=== PATIENT | female | born 1945 | race Caucasian/White ===

== ENCOUNTER 2017-07-08 10:41 | Emergency (ER) | payer MEDICARE ==
[2017-07-08 10:54] VITALS: BP 131/61; PULSE 87; RESP 17; TEMP 97.8
[2017-07-08] MEDS ORDERED: LORazepam 1 MG TAB PO STA (11:12)
--- NOTE | 2017-07-08 11:15 | ED ---
General Adult HPI - General Chief complaint: Anxiety Stated complaint: SHAKY, WEAKNESS Time Seen by Provider: 07/08/17 10:58 Source: patient, family, RN notes reviewed Mode of arrival: wheelchair Limitations: no limitations - History of Present Illness Initial comments: 71-year-old female presents to the emergency department with a chief complaint of anxiety. Patient has been having a lot of stress in her life recently and on Thursday started to flareup. She has a history of anxiety she's been on different anxiety medications throughout her life. Patient recently started doctor yesterday due to the increase in stress and anxiety and was placed on a new medication. She states today she continued to feel shaky and anxious they called her doctor and they sent her here to be seen. She denies any suicidal or homicidal thoughts. She states it feels exactly like her typical anxiety she has no physical complaints. She talks that the daughter the daughter states it seems much like her anxiety. There is wondering if that maybe we can do to help decrease her anxiety so that she can relax today.Patient denies any recent fever, chills, shortness of breath, chest pain, back pain, abdominal pain , nausea vomiting, numbness or tingling, dysuria or hematuria, constipation or diarrhea, headaches or visual changes, or any other current symptoms. - Related Data Allergies Allergy/AdvReac Type Severity Reaction Status Date / Time No Known Allergies Allergy Verified 07/08/17 10:54 Review of Systems ROS Statement: Those systems with pertinent positive or pertinent negative responses have been documented in the HPI. ROS Other: All systems not noted in ROS Statement are negative. Past Medical History Past Medical History: GERD/Reflux, Hyperlipidemia, Hypertension Additional Past Medical History / Comment(s): glaucoma History of Any Multi-Drug Resistant Organisms: None Reported Past Surgical History: Hysterectomy Past Psychological History: Anxiety Smoking Status: Current every day smoker Past Alcohol Use History: None Reported Past Drug Use History: None Reported General Exam Limitations: no limitations ENT exam: Present: normal exam, mucous membranes moist Neck exam: Present: normal inspection. Absent: tenderness, meningismus, lymphadenopathy Respiratory exam: Present: normal lung sounds bilaterally. Absent: respiratory distress, wheezes, rales, rhonchi, stridor Cardiovascular Exam: Present: regular rate, normal rhythm, normal heart sounds. Absent: systolic murmur, diastolic murmur, rubs, gallop, clicks Neurological exam: Present: alert, oriented X3 Psychiatric exam: Present: anxious. Absent: homicidal ideation, suicidal ideation Skin exam: Present: warm, dry, intact, normal color. Absent: rash Course Vital Signs 07/08/17 10:50 Temperature 97.8 F Pulse Rate 87 Respiratory 17 Rate Blood Pressure 131/61 O2 Sat by Pulse 94 L Oximetry Medical Decision Making - Medical Decision Making 71-year-old female presents emergency Department chief complaint of anxiety. At this time patient was offered a psychiatric evaluation patient does not want have that done. We did discuss additional workup for anxiety but she states this is much like her normal anxiety. At this time we did give the patient Ativan and her symptoms have improved. We did discuss return parameters and follow-up with her doctor. She does contract to safety and all questions have been answered. She will be discharged. Disposition Clinical Impression: Acute anxiety Disposition: HOME SELF-CARE Condition: Stable Instructions: Generalized Anxiety Disorder (ED) Additional Instructions: Please use medication as discussed. Please follow up with family doctor if symptoms have not improved over the next two days. Please return to the emergency room if your symptoms increase or worsen or for any other concerns. Referrals: Julieta Vargas MD [Primary Care Provider] - 1-2 days Time of Disposition: 12:07
== END 2017-07-08 12:34 | disposition home or self-care (01) ==
LOC: EC 10:41
DX: F41.9 Anxiety disorder, unspecified (principal); F17.200 Nicotine dependence, unspecified, uncomplicated
CPT/HCPCS: 99283

== ENCOUNTER 2017-11-15 11:33 | Emergency (ER) | payer MEDICARE ==
[2017-11-15 12:01] VITALS: PULSE 85
[2017-11-15] MEDS ORDERED: LORazepam 2 MG/ML INJ IV STA (13:30)
[2017-11-15 13:34] LABS: Basophils % (A) 0 %; Eosinophils # (A) 0.3 k/uL (0-0.7); Eosinophils % (A) 3 %; HCT 41.3 % (34.0-46.0); HGB 13.7 gm/dL (11.4-16.0); Lymphocytes # (A) 1.9 k/uL (1.0-4.8); Lymphocytes % (A) 17 %; MCH 31.6 pg (25.0-35.0); MCHC 33.2 g/dL (31.0-37.0); MCV 95.1 fL (80.0-100.0); Mean Platelet Volume 8.3; Monocytes # (A) 0.8 k/uL (0-1.0); Monocytes % (A) 7 %; Neutrophils % (A) 72 %; Platelet Count 434 k/uL (150-450); RBC 4.35 m/uL (3.80-5.40); RDW 12.2 % (11.5-15.5); WBC 11.1 k/uL (3.8-10.6)
[2017-11-15 13:44] LABS: ALT 33 U/L (9-52); AST 29 U/L (14-36); Albumin 4.2 g/dL (3.5-5.0); Alkaline Phosphatase 93 U/L (38-126); Anion Gap 10 mmol/L; Blood Urea Nitrogen 10 mg/dL (7-17); Calcium 10.2 mg/dL (8.4-10.2); Carbon Dioxide 29 mmol/L (22-30); Chloride 95 mmol/L (98-107); Glucose 103 mg/dL (74-99); Magnesium 1.9 mg/dL (1.6-2.3); Potassium 4.3 mmol/L (3.5-5.1); Sodium 134 mmol/L (137-145); Total Bilirubin 0.6 mg/dL (0.2-1.3); Total Protein 7.6 g/dL (6.3-8.2)
--- NOTE | 2017-11-15 13:52 | ED ---
General Adult HPI - General Chief complaint: Extremity Injury, Upper Stated complaint: Shaky Time Seen by Provider: 11/15/17 13:22 Source: patient, RN notes reviewed Mode of arrival: ambulatory Limitations: no limitations - History of Present Illness Initial comments: 72-year-old female presents emergency Department chief complaint of shaking. Patient states that she started having very anxious yesterday started shaking. Patient states that she normally takes Xanax which she's been out. Patient takes 0.25 mg. Patient states that when she states that she's had her Xanax. Patient denies any chest pain, shortness breath, focal weakness, headache or dizziness. Patient has appointment tomorrow with PCP. Patient does admit that she is very worried about everything. Patient states she takes Xanax for anxiety and insomnia. - Related Data Home Medications Medication Instructions Recorded Confirmed FLUoxetine HCL [PROzac] 20 mg PO DAILY 07/08/17 11/15/17 Latanoprost Ophth [Xalatan 0.005%] 1 drop BOTH EYES HS 07/08/17 11/15/17 Metoclopramide HCl [Reglan] 10 mg PO TID 07/08/17 11/15/17 Valsartan/Hydrochlorothiazide 1 tab PO DAILY 07/08/17 11/15/17 [Valsartan-Hctz 160-12.5 mg Tab] ALPRAZolam [Xanax] 0.25 mg PO Q6H PRN 11/15/17 11/15/17 Aspirin EC [Ecotrin Low Dose] 81 mg PO DAILY 11/15/17 11/15/17 Atorvastatin [Lipitor] 20 mg PO HS 11/15/17 11/15/17 Brimonidine Tartrate [Alphagan P 1 drops BOTH EYES BID 11/15/17 11/15/17 0.1% Ophth Soln] Dorzolamide/Timolol/Pf [Cosopt Pf 1 applicator BOTH EYES DAILY 11/15/17 11/15/17 2%/5% Ophth Droperette] Gentamicin/Prednisol AC [Pred-G 1% 1 drop RIGHT EYE QID 11/15/17 11/15/17 Eye Drops] Ketorolac 0.5% Ophth Soln [Acular] 1 drops RIGHT EYE QID 03/25/18 03/25/18 Multivitamins, Thera [Multivitamin 1 tab PO DAILY 11/15/17 11/15/17 (formulary)] Omeprazole 40 mg PO DAILY 11/15/17 11/15/17 hydrOXYzine PAMOATE [Vistaril] 25 - 50 mg PO Q6H PRN 11/15/17 11/15/17 Previous Rx's Medication Instructions Recorded ALPRAZolam [Xanax] 0.25 mg PO BID PRN #10 tab 11/15/17 Allergies Allergy/AdvReac Type Severity Reaction Status Date / Time No Known Allergies Allergy Verified 11/15/17 13:19 Review of Systems ROS Statement: Those systems with pertinent positive or pertinent negative responses have been documented in the HPI. ROS Other: All systems not noted in ROS Statement are negative. Past Medical History Past Medical History: GERD/Reflux, Hyperlipidemia, Hypertension Additional Past Medical History / Comment(s): glaucoma History of Any Multi-Drug Resistant Organisms: None Reported Past Surgical History: Hysterectomy Additional Past Surgical History / Comment(s): eye sx 11/12 Past Psychological History: Anxiety Smoking Status: Current every day smoker Past Alcohol Use History: None Reported Past Drug Use History: None Reported General Exam Limitations: no limitations General appearance: alert, in no apparent distress Head exam: Present: atraumatic, normocephalic, normal inspection Eye exam: Present: normal appearance, PERRL, EOMI. Absent: scleral icterus, conjunctival injection, periorbital swelling ENT exam: Present: normal exam, normal oropharynx, mucous membranes moist, TM's normal bilaterally, normal external ear exam Neck exam: Present: normal inspection, full ROM. Absent: tenderness, meningismus, lymphadenopathy Respiratory exam: Present: normal lung sounds bilaterally. Absent: respiratory distress, wheezes, rales, rhonchi, stridor Cardiovascular Exam: Present: regular rate, normal rhythm, normal heart sounds. Absent: systolic murmur, diastolic murmur, rubs, gallop, clicks Extremities exam: Present: normal inspection, full ROM, normal capillary refill , other (Equal strength of all extremities). Absent: tenderness, pedal edema, joint swelling, calf tenderness Neurological exam: Present: alert, oriented X3, CN II-XII intact, reflexes normal, other (Pscyth-ca-yyem intact bilaterally without shooting.). Absent: motor sensory deficit Psychiatric exam: Present: anxious Skin exam: Present: warm, dry, intact, normal color. Absent: rash Course Vital Signs 11/15/17 11:58 Temperature 97.2 F L Pulse Rate 85 Respiratory 18 Rate Blood Pressure 139/85 O2 Sat by Pulse 92 L Oximetry - Reevaluation(s) Reevaluation #1: 11/15/17 13:51 Patient was reevaluated after Ativan. Patient has improvement. Medical Decision Making - Medical Decision Making 72-year-old female presented to get she is shaky. Lab work is unremarkable. Patient's symptoms are related to anxiety that she only takes Xanax for though she is out of them. Patient be given a short prescription and she has no appointment tomorrow. Return parameters were discussed. - Lab Data Result diagrams: 11/15/17 13:07 11/15/17 13:07 Lab Results 11/15/17 11/15/17 Range/Units 13:07 13:07 WBC 11.1 H (3.8-10.6) k/uL RBC 4.35 (3.80-5.40) m/uL Hgb 13.7 (11.4-16.0) gm/dL Hct 41.3 (34.0-46.0) % MCV 95.1 (80.0-100.0) fL MCH 31.6 (25.0-35.0) pg MCHC 33.2 (31.0-37.0) g/dL RDW 12.2 (11.5-15.5) % Plt Count 434 (150-450) k/uL Neutrophils % 72 % Lymphocytes % 17 % Monocytes % 7 % Eosinophils % 3 % Basophils % 0 % Neutrophils # 8.0 H (1.3-7.7) k/uL Lymphocytes # 1.9 (1.0-4.8) k/uL Monocytes # 0.8 (0-1.0) k/uL Eosinophils # 0.3 (0-0.7) k/uL Basophils # 0.0 (0-0.2) k/uL Sodium 134 L (137-145) mmol/L Potassium 4.3 (3.5-5.1) mmol/L Chloride 95 L (98-107) mmol/L Carbon Dioxide 29 (22-30) mmol/L Anion Gap 10 mmol/L BUN 10 (7-17) mg/dL Creatinine 0.63 (0.52-1.04) mg/dL Est GFR (CKD-EPI)AfAm >90 (>60 ml/min/1.73 sqM) Est GFR (CKD-EPI)NonAf >90 (>60 ml/min/1.73 sqM) Glucose 103 H (74-99) mg/dL Calcium 10.2 (8.4-10.2) mg/dL Magnesium 1.9 (1.6-2.3) mg/dL Total Bilirubin 0.6 (0.2-1.3) mg/dL AST 29 (14-36) U/L ALT 33 (9-52) U/L Alkaline Phosphatase 93 (38-126) U/L Total Protein 7.6 (6.3-8.2) g/dL Albumin 4.2 (3.5-5.0) g/dL Disposition Clinical Impression: Anxiety Disposition: HOME SELF-CARE Condition: Stable Instructions: Anxiety (ED) Additional Instructions: Please return to the Emergency Department if symptoms worsen or any other concerns. Prescriptions: ALPRAZolam [Xanax] 0.25 mg PO BID PRN #10 tab PRN Reason: Anxiety Referrals: Julieta Vargas MD [Primary Care Provider] - 1-2 days Time of Disposition: 14:12
[2017-11-15 14:20] VITALS: BP 142/82; RESP 20; TEMP 98.7
== END 2017-11-15 14:19 | disposition home or self-care (01) ==
LOC: EC 11:33
DX: F41.9 Anxiety disorder, unspecified (principal); R25.1 Tremor, unspecified; K21.9 Gastro-esophageal reflux disease without esophagitis; E78.5 Hyperlipidemia, unspecified; I10 Essential (primary) hypertension; H40.9 Unspecified glaucoma; F17.200 Nicotine dependence, unspecified, uncomplicated; Z79.899 Other long term (current) drug therapy; Z79.82 Long term (current) use of aspirin
CPT/HCPCS: 36415; 80053; 83735; 85025; 99283; 96374; J2060

== ENCOUNTER → 2018-03-22 | Outpatient (CLI) | payer MEDICARE ==
--- NOTE | 2018-03-22 14:36 | CT ---
EXAMINATION TYPE: CT brain wo con DATE OF EXAM: 03/22/2018 COMPARISON: None HISTORY: Tremors of the nervous system CT DLP: 1014.2 mGycm Automated exposure control for dose reduction was used. TECHNIQUE: CT scan of the head is performed without contrast. FINDINGS: There is no acute intracranial hemorrhage or midline shift identified. There is diffuse v entricular and sulcal prominence consistent with diffuse age-related cerebral atrophy. There are few scattered areas of low-attenuation in the periventricular white matter consistent with chronic small vessel ischemic change. The globes are intact and the visualized sinuses are clear. Partial pneumat ization of the petrous apices is incidentally seen. There is surgical absence of the right ocular le ns. IMPRESSION: No acute intracranial process. Mild diffuse age-related cerebral atrophy and mild burden chronic small vessel ischemic change. This could be further assessed with MRI if clinically indicate d. Additionally indents scan could be considered if there is concern for Parkinson's.
== END | disposition home or self-care (01) ==
LOC: RADCTMAIN 14:03
PROVIDERS: ATTEND Psychiatry & Neurology Neurology
DX: G31.1 Senile degeneration of brain, not elsewhere classified (principal); I67.82 Cerebral ischemia
CPT/HCPCS: 70450

== ENCOUNTER → 2020-03-02 | Outpatient (CLI) | payer MEDICARE ==
--- NOTE | 2020-03-02 09:22 | US ---
EXAMINATION TYPE: US abdomen complete DATE OF EXAM: 03/02/2020 COMPARISON: NONE CLINICAL HISTORY: R11.0 nausea, R74.8 abnormal level of enzymes. EXAM MEASUREMENTS: Liver Length: 15.6 cm Gallbladder Wall: 0.2 cm CBD: 0.5 cm Spleen: 7.9 cm Right Kidney: 11.3 x 3.8 x 5.1 cm Left Kidney: 9.5 x 5.8 x 5.5 cm Pancreas: not well visualized due to bowel gas Liver: wnl Gallbladder: No stones seen Evidence for sonographic Herbert's sign: No CBD: wnl Spleen: wnl Right Kidney: No hydronephrosis or masses seen Left Kidney: No hydronephrosis or masses seen Upper IVC: wnl Abd Aorta: calcified The liver is homogenous. The intrahepatic portion of the IVC and proximal abdominal aorta are within normal limits. There is no evidence of cholelithiasis. Common bile duct is unremarkable. The visu alized portions of the pancreas are homogenous. The spleen is unremarkable. Kidneys are symmetric a nd free of hydronephrosis. No renal lesions are seen. IMPRESSION: No distinct abnormality appreciated.
== END | disposition home or self-care (01) ==
LOC: RADUSWWP 08:50
PROVIDERS: ATTEND Family Medicine
DX: R11.0 Nausea (principal); R74.8 Abnormal levels of other serum enzymes
CPT/HCPCS: 76700

== ENCOUNTER 2020-07-21 18:54 | Inpatient (IN) | payer MEDICARE ==
[2020-07-21] MEDS ORDERED: MORPHINE SULFATE 4 MG/ML SYRINGE IVP STA (19:18)
[2020-07-21] MEDS ORDERED: ONDANSETRON 4 MG/2 ML VIAL IVP STA (19:18)
[2020-07-21 19:49] LABS: Basophils # (A) 0.1 k/uL (0-0.2); Basophils % (A) 0 %; Eosinophils # (A) 0.2 k/uL (0-0.7); Eosinophils % (A) 1 %; HCT 40.1 % (34.0-46.0); HGB 14.1 gm/dL (11.4-16.0); Lymphocytes # (A) 1.3 k/uL (1.0-4.8); Lymphocytes % (A) 7 %; MCH 33.6 pg (25.0-35.0); MCHC 35.3 g/dL (31.0-37.0); MCV 95.2 fL (80.0-100.0); Mean Platelet Volume 9.8; Monocytes # (A) 0.8 k/uL (0-1.0); Monocytes % (A) 4 %; Neutrophils # (A) 16.6 k/uL (1.3-7.7); Neutrophils % (A) 87 %; Platelet Count 298 k/uL (150-450); RBC 4.21 m/uL (3.80-5.40); RDW 12.6 % (11.5-15.5); WBC 19.1 k/uL (3.8-10.6)
--- NOTE | 2020-07-21 19:54 | ED ---
Fall HPI - General Chief Complaint: Fall Stated Complaint: Fall, R Hip Pain Time Seen by Provider: 07/21/20 19:07 Source: EMS Mode of arrival: EMS - History of Present Illness Initial Comments: 74-year-old female patient presents to the emergency department today for evaluation of right hip pain. Patient states about an hour and a half ago she expressed a fall landing on the right hip. Patient states she had immediate onset of pain. She is reporting pain to the right lateral hip into the right low back. She states that the pain does radiate down her leg. Denies numbness or tingling to the feet. Denies history of hip injury. She states that she lightly struck her head. Denies any current headache, blurred vision, double vision. Denies loss of consciousness. Denies taking any blood thinning medications. Patient denies any neck pain, back pain, chest pain, shortness of breath, dizziness, weakness, abdominal pain, nausea, vomiting, or difficulties with bowel movements or urination. - Related Data Home Medications Medication Instructions Recorded Confirmed FLUoxetine HCL [PROzac] 20 mg PO DAILY 07/08/17 11/15/17 Latanoprost Ophth [Xalatan 0.005%] 1 drop BOTH EYES HS 07/08/17 11/15/17 Metoclopramide HCl [Reglan] 10 mg PO TID 07/08/17 11/15/17 Valsartan/Hydrochlorothiazide 1 tab PO DAILY 07/08/17 11/15/17 [Valsartan-Hctz 160-12.5 mg Tab] ALPRAZolam [Xanax] 0.25 mg PO Q6H PRN 11/15/17 11/15/17 Aspirin EC [Ecotrin Low Dose] 81 mg PO DAILY 11/15/17 11/15/17 Atorvastatin [Lipitor] 20 mg PO HS 11/15/17 11/15/17 Brimonidine Tartrate [Alphagan P 1 drops BOTH EYES BID 11/15/17 11/15/17 0.1% Ophth Soln] Dorzolamide/Timolol/Pf [Cosopt Pf 1 applicator BOTH EYES DAILY 11/15/17 11/15/17 2%/5% Ophth Droperette] Gentamicin/Prednisol AC [Pred-G 1% 1 drop RIGHT EYE QID 11/15/17 11/15/17 Eye Drops] Ketorolac 0.5% Ophth Soln [Acular] 1 drops RIGHT EYE QID 11/15/17 11/15/17 Multivitamins, Thera [Multivitamin 1 tab PO DAILY 11/15/17 11/15/17 (formulary)] Omeprazole 40 mg PO DAILY 11/15/17 11/15/17 hydrOXYzine pamoate [Vistaril] 25 - 50 mg PO Q6H PRN 11/15/17 11/15/17 Previous Rx's Medication Instructions Recorded ALPRAZolam [Xanax] 0.25 mg PO BID PRN #10 tab 11/15/17 Allergies Allergy/AdvReac Type Severity Reaction Status Date / Time No Known Allergies Allergy Verified 07/21/20 19:03 Review of Systems ROS Statement: Those systems with pertinent positive or pertinent negative responses have been documented in the HPI. ROS Other: All systems not noted in ROS Statement are negative. Past Medical History Past Medical History: GERD/Reflux, Hyperlipidemia, Hypertension Additional Past Medical History / Comment(s): glaucoma, parkinsons. History of Any Multi-Drug Resistant Organisms: None Reported Past Surgical History: Hysterectomy Additional Past Surgical History / Comment(s): eye sx 11/12 Past Psychological History: Anxiety Smoking Status: Current every day smoker Past Alcohol Use History: None Reported Past Drug Use History: None Reported General Exam Limitations: no limitations General appearance: alert, in no apparent distress, other (This is a well- developed, well-nourished adult female patient in mild distress related to pain. Vital signs upon presentation are temperature 98.4F, pulse 80, respirations 18, blood pressure 188/82, pulse ox 93% on room air.) Head exam: Present: atraumatic, normocephalic, normal inspection Eye exam: Present: normal appearance, PERRL, EOMI. Absent: scleral icterus, conjunctival injection, nystagmus, periorbital swelling ENT exam: Present: normal exam, normal oropharynx, mucous membranes moist Neck exam: Present: normal inspection, full ROM, other (Nontender, no step-off, no deformity to firm midline palpation of the posterior cervical spine. Full range of motion without pain or limitation.). Absent: tenderness, meningismus, lymphadenopathy Respiratory exam: Present: normal lung sounds bilaterally. Absent: respiratory distress, wheezes, rales, rhonchi, stridor Cardiovascular Exam: Present: regular rate, normal rhythm, normal heart sounds. Absent: systolic murmur, diastolic murmur, rubs, gallop, clicks GI/Abdominal exam: Present: soft, normal bowel sounds. Absent: distended, tenderness, guarding, rebound, rigid Extremities exam: Present: full ROM, normal capillary refill, other (Bilateral hip tenderness. Shortening and rotation noted of the right leg. Skin to the right leg is pink, warm, dry. Pulses faint but present.). Absent: normal inspection, tenderness, pedal edema, joint swelling, calf tenderness Back exam: Present: normal inspection. Absent: vertebral tenderness Neurological exam: Present: alert, oriented X3, CN II-XII intact Psychiatric exam: Present: normal affect, normal mood Skin exam: Present: warm, dry, intact, normal color. Absent: rash Course Vital Signs 07/21/20 07/21/20 07/21/20 18:55 22:03 22:04 Temperature 98.4 F Pulse Rate 80 85 Respiratory 18 16 Rate Blood Pressure 188/82 O2 Sat by Pulse 93 L 95 Oximetry Medical Decision Making - Medical Decision Making 74-year-old female patient presents to the emergency department today for evaluation of right hip pain after experiencing a fall. Physical examination did reveal right lateral hip tenderness and shortening and rotation of the right leg. Neurovascular status is intact. Patient was hypoxic upon arrival satting around 92-93% on 4 L. She did drop into the low 80s on 4 L we did change her over to a Ventimask which is maintaining saturations are 95%. She was given a breathing treatment. Labs reviewed and did reveal elevated white blood cell count at 19.1, sodium is 126 which appears chronic for her. AST and ALT are elevated in the 180s. COVID-19 swab is pending. She will be admitted to the hospital. Dr. Yun is excepting. Dr. Apple's for medical management. He is aware of the patient and will see her first thing in the morning. - Lab Data Result diagrams: 07/21/20 19:41 07/21/20 20:20 Lab Results 07/21/20 07/21/20 07/21/20 Range/Units 19:41 20:15 20:20 WBC 19.1 H (3.8-10.6) k/uL RBC 4.21 (3.80-5.40) m/uL Hgb 14.1 (11.4-16.0) gm/dL Hct 40.1 (34.0-46.0) % MCV 95.2 (80.0-100.0) fL MCH 33.6 (25.0-35.0) pg MCHC 35.3 (31.0-37.0) g/dL RDW 12.6 (11.5-15.5) % Plt Count 298 (150-450) k/uL MPV 9.8 Neutrophils % 87 % Lymphocytes % 7 % Monocytes % 4 % Eosinophils % 1 % Basophils % 0 % Neutrophils # 16.6 H (1.3-7.7) k/uL Lymphocytes # 1.3 (1.0-4.8) k/uL Monocytes # 0.8 (0-1.0) k/uL Eosinophils # 0.2 (0-0.7) k/uL Basophils # 0.1 (0-0.2) k/uL Sodium 126 L (137-145) mmol/L Potassium 4.0 (3.5-5.1) mmol/L Chloride 98 (98-107) mmol/L Carbon Dioxide 25 (22-30) mmol/L Anion Gap 3 mmol/L BUN 11 (7-17) mg/dL Creatinine 0.67 (0.52-1.04) mg/dL Est GFR (CKD-EPI)AfAm >90 (>60 ml/min/1.73 sqM) Est GFR (CKD-EPI)NonAf 88 (>60 ml/min/1.73 sqM) Glucose 140 H (74-99) mg/dL Calcium 9.3 (8.4-10.2) mg/dL Total Bilirubin 0.7 (0.2-1.3) mg/dL AST 181 H (14-36) U/L ALT 184 H (4-34) U/L Alkaline Phosphatase 98 (38-126) U/L Total Protein 7.2 (6.3-8.2) g/dL Albumin 3.5 (3.5-5.0) g/dL Urine Color Urine Appearance (Clear) Urine pH (5.0-8.0) Ur Specific Peculiar (1.001-1.035) Urine Protein (Negative) Urine Glucose (UA) (Negative) Urine Ketones (Negative) Urine Blood (Negative) Urine Nitrite (Negative) Urine Bilirubin (Negative) Urine Urobilinogen (<2.0) mg/dL Ur Leukocyte Esterase (Negative) Blood Type A Positive Blood Type Confirm Blood Type Recheck No Previous Record Bld Type Recheck Status CABO Indicated Antibody Screen NEGATIVE Spec Expiration Date 07/24/2020 - 231407/21/20 07/21/20 Range/Units 20:20 21:13 WBC (3.8-10.6) k/uL RBC (3.80-5.40) m/uL Hgb (11.4-16.0) gm/dL Hct (34.0-46.0) % MCV (80.0-100.0) fL MCH (25.0-35.0) pg MCHC (31.0-37.0) g/dL RDW (11.5-15.5) % Plt Count (150-450) k/uL MPV Neutrophils % % Lymphocytes % % Monocytes % % Eosinophils % % Basophils % % Neutrophils # (1.3-7.7) k/uL Lymphocytes # (1.0-4.8) k/uL Monocytes # (0-1.0) k/uL Eosinophils # (0-0.7) k/uL Basophils # (0-0.2) k/uL Sodium (137-145) mmol/L Potassium (3.5-5.1) mmol/L Chloride (98-107) mmol/L Carbon Dioxide (22-30) mmol/L Anion Gap mmol/L BUN (7-17) mg/dL Creatinine (0.52-1.04) mg/dL Est GFR (CKD-EPI)AfAm (>60 ml/min/1.73 sqM) Est GFR (CKD-EPI)NonAf (>60 ml/min/1.73 sqM) Glucose (74-99) mg/dL Calcium (8.4-10.2) mg/dL Total Bilirubin (0.2-1.3) mg/dL AST (14-36) U/L ALT (4-34) U/L Alkaline Phosphatase (38-126) U/L Total Protein (6.3-8.2) g/dL Albumin (3.5-5.0) g/dL Urine Color Yellow Urine Appearance Clear (Clear) Urine pH 7.0 (5.0-8.0) Ur Specific Peculiar 1.012 (1.001-1.035) Urine Protein Negative (Negative) Urine Glucose (UA) Negative (Negative) Urine Ketones Negative (Negative) Urine Blood Negative (Negative) Urine Nitrite Negative (Negative) Urine Bilirubin Negative (Negative) Urine Urobilinogen <2.0 (<2.0) mg/dL Ur Leukocyte Esterase Negative (Negative) Blood Type Blood Type Confirm A Positive Blood Type Recheck Bld Type Recheck Status Antibody Screen Spec Expiration Date - EKG Data -: EKG Interpreted by Me EKG Comments: EKG obtained at 2123 shows normal sinus rhythm with a ventricular rate of 84, NM interval 154, QRS duration 78, QT 386, QTc 456. No evidence of ST elevation or depression. - Radiology Data Radiology results: report reviewed, image reviewed CT angiography of the chest is obtained. Report is reviewed in its entirety. Impression by Dr. Damon shows no evidence of pulmonary embolism. Like trail hernia. Mild pulmonary fibrotic changes. No suspicious pulmonary mass. 4 views of the right hip and pelvis are obtained. Report was reviewed in its entirety. Impression by Dr. Damon shows acute impacted subcapital fracture of the right femur. One view x-ray of the chest is obtained. Report was reviewed in its entirety. Impression by Dr. Damon shows hiatal hernia. No active cardiopulmonary disease. Disposition Clinical Impression: Closed right hip fracture, Hypoxia Disposition: ADMITTED IP TO THIS [facility] Condition: Serious Referrals: Julieta Vargas MD [Primary Care Provider] - 1-2 days Decision to Admit Reason: Admit from EC Decision Date: 07/21/20 Decision Time: 21:36
--- NOTE | 2020-07-21 20:32 | XR ---
EXAMINATION TYPE: XR chest 1V DATE OF EXAM: 07/21/2020 COMPARISON: NONE HISTORY: Preop clearance TECHNIQUE: 2 views supine FINDINGS: There is no heart failure nor confluent pneumonic infiltrate. Costophrenic angles are clear . There are no hilar masses. Bony thorax is intact. There is probably a hiatal hernia. IMPRESSION: Hiatal hernia. No active cardiopulmonary disease.
--- NOTE | 2020-07-21 20:33 | XR ---
EXAMINATION TYPE: XR Hip RT and AP Pelvis DATE OF EXAM: 07/21/2020 COMPARISON: NONE HISTORY: Hip pain TECHNIQUE: 4 views FINDINGS: There is impacted subcapital fracture right femur. There is approximate 3 cm of impaction. There is no dislocation. The pelvic ring is intact. Sacroiliac joints are intact. IMPRESSION: Acute impacted subcapital fracture right femur.
[2020-07-21 20:47] LABS: ALT 184 U/L (4-34); AST 181 U/L (14-36); African American GFR (CKD) >90 (>60 ml/min/1.73 sqM); Albumin 3.5 g/dL (3.5-5.0); Alkaline Phosphatase 98 U/L (38-126); Anion Gap 3 mmol/L; Blood Urea Nitrogen 11 mg/dL (7-17); Calcium 9.3 mg/dL (8.4-10.2); Carbon Dioxide 25 mmol/L (22-30); Chloride 98 mmol/L (98-107); Glucose 140 mg/dL (74-99); Non-African American GFR(CKD) 88 (>60 ml/min/1.73 sqM); Sodium 126 mmol/L (137-145); Total Bilirubin 0.7 mg/dL (0.2-1.3); Total Protein 7.2 g/dL (6.3-8.2)
[2020-07-21] MEDS ORDERED: IPRATROPIUM-ALBUTEROL 3 ML NEB INHALATION STA (20:58)
[2020-07-21 21:20] LABS: Appearance,Urine Clear (Clear); Bilirubin,Urine Negative (Negative); Blood,Urine Negative (Negative); Color,Urine Yellow; Glucose,Urine (UA) Negative (Negative); Ketones,Urine Negative (Negative); Leukocyte Esterase,Urine Negative (Negative); Nitrite,Urine Negative (Negative); Protein,Urine Negative (Negative); Specific Gravity,Urine 1.012 (1.001-1.035); Urobilinogen,Urine <2.0 mg/dL (<2.0)
[2020-07-21] MEDS ORDERED: NALOXONE 0.4 MG/ML 1 ML VIAL IV PRN (21:33)
[2020-07-21] MEDS ORDERED: ONDANSETRON 4 MG/2 ML VIAL IVP PRN (21:33)
[2020-07-21] MEDS ORDERED: HYDROmorphone 0.5 MG/0.5 ML SYRINGE IVP STA (21:35)
[2020-07-21] MEDS ORDERED: ACETAMINOPHEN TAB 325 MG TAB PO PRN (22:00)
--- NOTE | 2020-07-21 22:09 | CT ---
EXAMINATION TYPE: CT chest angio for PE DATE OF EXAM: 07/21/2020 COMPARISON: HISTORY: Hypoxia CT DLP: 297.6 mGycm Automated exposure control for dose reduction was used. CONTRAST: Performed with IV Contrast, patient injected with 80 mL of Isovue 370. There are 3-D post processed images. There is no mediastinal adenopathy. Thoracic aorta is atheromatous. There is no aneurysm or dissectio n. There is large hiatal hernia. Heart size is fairly normal. There is no pericardial effusion. There is normal contrast opacification of the pulmonary arteries. There are no filling defects. There are no hilar masses. The lungs are clear of consolidation. There is minimal fibrotic change at the lung apices. There is m inimal scarring and subsegmental atelectasis at the lung bases. Bony thorax is intact. IMPRESSION: No evidence of pulmonary embolism. Large hiatal hernia. Mild pulmonary fibrotic changes. No suspicious pulmonary mass.
[2020-07-21 22:30] LABS: Partial Thromboplastin Time 25.9 sec (22.0-30.0); Prothrombin Time 10.3 sec (9.0-12.0)
[2020-07-22] MEDS: HYDROmorphone 0.5 MG/0.5 ML SYRINGE IVP PRN ×6 (00:35→22:06)
[2020-07-22] MEDS: SODIUM CHLORIDE 0.9% 1,000 ML IV SCH ×2 (00:37→19:56)
[2020-07-22 09:17] LABS: Basophils % (A) 0 %; Eosinophils # (A) 0.1 k/uL (0-0.7); Eosinophils % (A) 0 %; Lymphocytes # (A) 1.1 k/uL (1.0-4.8); Lymphocytes % (A) 9 %; MCH 33.1 pg (25.0-35.0); MCHC 34.3 g/dL (31.0-37.0); MCV 96.5 fL (80.0-100.0); Mean Platelet Volume 7.5; Monocytes # (A) 0.8 k/uL (0-1.0); Monocytes % (A) 7 %; Neutrophils # (A) 10.5 k/uL (1.3-7.7); Neutrophils % (A) 83 %; Platelet Count 220 k/uL (150-450); RBC 3.94 m/uL (3.80-5.40); RDW 12.6 % (11.5-15.5); WBC 12.7 k/uL (3.8-10.6)
--- NOTE | 2020-07-22 09:22 | P.HPOR ---
<Alize Pulido - Last Filed: 07/22/20 09:17> History of Present Illness H&P Date: 07/22/20 Chief Complaint: Right hip pain This is a 74-year-old female who fell in her home last evening when she is trying to move an object with her foot. She lost her balance and fell on her right hip. She thinks she bumped her head slightly but has no complaint of headache or neck pain today. She denies loss of consciousness. Her main complaint is severe right hip pain. She was admitted through the emergency department last evening. We're planning or today for hemiarthroplasty of the right hip. The patient's O2 sat dropped into the low 80s at one point yesterday. She has been on O2 per nasal cannula. She has history of chronic COPD and is a pack-a-day smoker. She does not use oxygen at home. Past Medical History Past Medical History: GERD/Reflux, Hyperlipidemia, Hypertension Additional Past Medical History / Comment(s): glaucoma, parkinsons. History of Any Multi-Drug Resistant Organisms: None Reported Past Surgical History: Hysterectomy Additional Past Surgical History / Comment(s): eye sx 11/12 Past Psychological History: Anxiety Smoking Status: Current every day smoker Past Alcohol Use History: None Reported Past Drug Use History: None Reported Medications and Allergies Home Medications Medication Instructions Recorded Confirmed Type Metoclopramide HCl [Reglan] 10 mg PO TID 07/08/17 07/21/20 History Valsartan/Hydrochlorothiazide 1 tab PO DAILY 07/08/17 07/21/20 History [Valsartan-Hctz 160-12.5 mg Tab] Atorvastatin [Lipitor] 20 mg PO HS 11/15/17 07/21/20 History Omeprazole 20 mg PO DAILY 11/15/17 07/21/20 History hydrOXYzine pamoate [Vistaril] 25 - 50 mg PO Q6H PRN 11/15/17 07/21/20 History Cholecalciferol (Vitamin D3) 125 mcg PO DAILY 07/21/20 07/21/20 History [Vitamin D3] FLUoxetine HCL [PROzac] 40 mg PO DAILY 07/21/20 07/21/20 History Vitamin E 400 unit PO DAILY 07/21/20 07/21/20 History rOPINIRole HCL [Requip] 0.25 mg PO DAILY 07/21/20 07/21/20 History rOPINIRole HCL [Requip] 1 mg PO HS 07/21/20 07/21/20 History Allergies Allergy/AdvReac Type Severity Reaction Status Date / Time No Known Allergies Allergy Verified 07/21/20 22:51 Physical Examination This is a pleasant 74-year-old female in no acute distress. She is alert and oriented 3. She is on 4 L of O2 per nasal cannula. Exam of her head neck reveal no obvious deformity. She has full cervical spine motion without d ifficulty or pain. No pain with palpation about cervical spine or paraspinal musculature. Exam the upper extremities reveals no deformity. She has full shoulder, elbow, wrist and finger motion without difficulty or pain. Neurovascular status the upper extremities is intact. Exam the lower extremities reveals shortening and external rotation to the right leg. She has full foot and ankle motion bilaterally. Neurovascular status to the lower extremities is intact. Results X-rays of the right hip reveal a displaced femoral neck fracture. - Labs Labs: Abnormal Lab Results - Last 24 Hours (Table) 07/21/20 07/21/20 07/22/20 Range/Units 19:41 20:20 08:29 WBC 19.1 H 12.7 H (3.8-10.6) k/uL Neutrophils # 16.6 H 10.5 H (1.3-7.7) k/uL Sodium 126 L (137-145) mmol/L Glucose 140 H (74-99) mg/dL AST 181 H (14-36) U/L ALT 184 H (4-34) U/L H & H 07/21/20 07/22/20 Range/Units 19:41 08:29 Hgb 14.1 13.0 (11.4-16.0) gm/dL Hct 40.1 38.0 (34.0-46.0) % Coagulation 07/21/20 Range/Units 21:30 INR 1.0 (<1.2) Result Diagrams: 07/22/20 08:29 07/21/20 20:20 Assessment and Plan Plan: Assessment: Displaced femoral neck fracture right hip. Plan: The clinical and x-ray findings are discussed with the patient. She has been seen by Dr. Apple and cleared for surgery with high risk due to her chronic COPD. We are planning or today for hemiarthroplasty of the right hip. She may need inpatient rehab postoperatively. <Tru Apple - Last Filed: 07/22/20 09:34> Results - Labs Labs: Abnormal Lab Results - Last 24 Hours (Table) 07/21/20 07/21/20 07/22/20 Range/Units 19:41 20:20 08:29 WBC 19.1 H 12.7 H (3.8-10.6) k/uL Neutrophils # 16.6 H 10.5 H (1.3-7.7) k/uL Sodium 126 L (137-145) mmol/L Glucose 140 H (74-99) mg/dL AST 181 H (14-36) U/L ALT 184 H (4-34) U/L H & H 07/21/20 07/22/20 Range/Units 19:41 08:29 Hgb 14.1 13.0 (11.4-16.0) gm/dL Hct 40.1 38.0 (34.0-46.0) % Coagulation 07/21/20 Range/Units 21:30 INR 1.0 (<1.2) Result Diagrams: 07/22/20 08:29 07/21/20 20:20
--- NOTE | 2020-07-22 09:34 | P.HPIM ---
History of Present Illness H&P Date: 07/22/20 Shira Nash, is a 74-year-old female who presented to [facility] emergency room with a chief complaint of fall and right hip pain, patient stated that she tripped and fell and landed on her right hip about an hour and a half prior to presentation she was complaining of pain in the right hip radiating to the back and to the right lower extremity she also had mild trauma to her head, she denies any loss of consciousness no headache no change in her vision. Patient was evaluated in the emergency room, her vital exam on presentation revealed a temperature of 98.4 pulse 80 respiration 18 blood pressure 188/82 pulse ox 93% on room air however subsequently her pulse ox dropped she was put on a nonrebreather mask, her white blood count on presentation was 19.1 hemoglobin 14.1 platelet count 298 INR 1.0 sodium 126 potassium 4.0 chloride 98 glucose 140 AST was elevated at 180 one a LT elevated at 184 alkaline phosphatase normal at 98 urine analysis was normal without any evidence of infection rob virus PCR was negative, chest x-ray done in the emergency room revealed evidence of hiatal hernia without any active cardiopulmonary disease. Due to hypoxia patient underwent CT angiogram of the chest it was negative for pulmonary embolism and revealed mild pulmonary fibroti c changes no suspicious pulmonary mass. EKG was done in the emergency room and revealed normal sinus rhythm with evidence of possible old septal infarct no ST or T-wave changes. Patient was admitted to medical floor under orthopedic surgery, medical consultation was requested for surgical clearance. Patient was seen and examined on the medical floor on 07/22/2020, she is alert and oriented 3 in no apparent distress she is complaining of right hip pain otherwise she denies any complaints there is no fever or chills no headache or dizziness no chest pain no shortness of breath no cough no nausea or vomiting no abdominal pain no diarrhea no blood in the stools no burning with urination no frequency or urgency and no hematuria no change in her vision or her speech no numbness or weakness in any of her extremities. Patient interviewed in details she has a known history of hypertension, hyp erlipidemia, gastroesophageal reflux disease, history of anxiety, and history of tremor with possible Parkinson disease. She denies any history of coronary artery disease no history of chest pain or angina or myocardial infarction in the past, no history of congestive heart failure. She denies any history of lung disease no history of COPD or emphysema no history of asthma however patient is a lifelong smoker she smokes 1 pack per day she has been smoking since age 20. Past Medical History Past Medical History: GERD/Reflux, Hyperlipidemia, Hypertension Additional Past Medical History / Comment(s): glaucoma, parkinsons. History of Any Multi-Drug Resistant Organisms: None Reported Past Surgical History: Hysterectomy Additional Past Surgical History / Comment(s): eye sx 11/12 Past Psychological History: Anxiety Smoking Status: Current every day smoker Past Alcohol Use History: None Reported Past Drug Use History: None Reported Medications and Allergies Home Medications Medication Instructions Recorded Confirmed Type Metoclopramide HCl [Reglan] 10 mg PO TID 07/08/17 07/21/20 History Valsartan/Hydrochlorothiazide 1 tab PO DAILY 07/08/17 07/21/20 History [Valsartan-Hctz 160-12.5 mg Tab] Atorvastatin [Lipitor] 20 mg PO HS 11/15/17 07/21/20 History Omeprazole 20 mg PO DAILY 11/15/17 07/21/20 History hydrOXYzine pamoate [Vistaril] 25 - 50 mg PO Q6H PRN 11/15/17 07/21/20 History Cholecalciferol (Vitamin D3) 125 mcg PO DAILY 07/21/20 07/21/20 History [Vitamin D3] FLUoxetine HCL [PROzac] 40 mg PO DAILY 07/21/20 07/21/20 History Vitamin E 400 unit PO DAILY 07/21/20 07/21/20 History rOPINIRole HCL [Requip] 0.25 mg PO DAILY 07/21/20 07/21/20 History rOPINIRole HCL [Requip] 1 mg PO HS 07/21/20 07/21/20 History Allergies Allergy/AdvReac Type Severity Reaction Status Date / Time No Known Allergies Allergy Verified 07/21/20 22:51 Physical Exam Vitals: Vital Signs Temp Pulse Pulse Resp BP BP Pulse Ox 07/22/20 08:00 98.5 F 16 114/60 95 07/22/20 07:24 87 16 07/22/20 02:15 98.2 F 87 18 117/58 90 L 07/21/20 23:55 98.1 F 87 16 149/71 93 L 07/21/20 22:04 85 16 07/21/20 22:03 95 07/21/20 18:55 98.4 F 80 18 188/82 93 L Intake and Output 07/21/20 07/22/20 07/22/20 22:59 06:59 14:59 Intake Total 300 Output Total 650 Balance -350 Intake: Intake, IV Titration 300 Amount Sodium Chloride 0.9% 1, 300 000 ml @ 50 mls/hr IV . Q20H [facility] Rx#:[id number] Output: Urine 650 Other: Voiding Method Indwelling Catheter Indwelling Catheter Weight 64.41 kg 64.41 kg In general patient is alert and oriented 3 in no apparent distress HEENT head normocephalic and atraumatic Neck is supple no JVD no goiter no lymphadenopathy Chest exam reveals a few scattered rhonchi no wheezing Cardiac exam reveals regular heart sounds S1 and S2 no gallops no murmurs nor rubs Abdomen is soft nontender no organomegaly with normal bowel sounds Extremity exam reveals no edema no cyanosis or clubbing peripheral pulses are palpable in both dorsalis pedis Neurological examination reveals no gross focal deficit Results CBC & Chem 7: 07/21/20 19:41 07/21/20 20:20 Labs: Abnormal Lab Results - Last 24 Hours (Table) 07/21/20 07/21/20 Range/Units 19:41 20:20 WBC 19.1 H (3.8-10.6) k/uL Neutrophils # 16.6 H (1.3-7.7) k/uL Sodium 126 L (137-145) mmol/L Glucose 140 H (74-99) mg/dL AST 181 H (14-36) U/L ALT 184 H (4-34) U/L Thrombosis Risk Factor Assmnt - Choose All That Apply Each Factor Represents 1 point: Abnormal pulmonary function (COPD) Each Risk Factor Represents 2 Points: Age 61-74 years Each Risk Factor Represents 5 Points: Hip, pelvis, or leg fracture (< 1 month) Thrombosis Risk Factor Assessment Total Risk Factor Score: 8 Thrombosis Risk Factor Assessment Level: High Risk Assessment and Plan Plan: 1. Fall with right hip fracture patient is scheduled for surgery today. Patient is at higher risk due to her age, her prolonged history of smoking, mild hypoxia on presentation, however there is no medical contraindication for surgery, no abnormality seen on EKG, chest x-ray, and CT angiogram of the chest, no evidence of any infectious process on chest x-ray, urine analysis, no skin ulceration or infection. Pulmonary consultation is requested for evaluation and management of COPD with hypoxia 2. Elevated liver enzyme cause is unclear at this time will discontinue Lipitor, if liver enzymes are not improving will check liver ultrasound, and rule out viral hepatitis. 3. Underlying history of hypertension 4. Underlying history of Parkinson disease maintained on Requip 5. Underlying history of depression with anxiety disorder 6. Underlying history of hyperlipidemia at this point will hold Lipitor due to elevated liver enzymes 7. Underlying history of gastroesophageal reflux disease with evidence of hiatal hernia continue At this time patient will have surgery today, she is at higher risk however no contraindication for surgery Will follow closely post surgery Pulmonary consultation requested in regard to COPD hypoxia and prolonged history of smoking
[2020-07-22 12:57] LABS: African American GFR (CKD) 100.3 (60.0-200.0); Albumin 3.4 g/dL (3.80-4.90); Albumin/Globulin Ratio 1.21 (1.60-3.17); BUN/Creat Ratio 14.29 Ratio (12.00-20.00); Calcium 9.2 mg/dL (8.7-10.3); Globulin 2.8 g/dL (1.6-3.3); Non-African American GFR(CKD) 86.6 (60.0-200.0); Potassium 4.1 mmol/L (3.5-5.5); Total Bilirubin 0.7 mg/dL (0.2-1.2); Total Protein 6.2 g/dL (6.2-8.2)
[2020-07-22] MEDS ORDERED: fentaNYL (PF) 50 MCG/ML 2 ML AMP ONE (13:35)
[2020-07-22] MEDS ORDERED: MIDAZOLAM 2 MG/2 ML VIAL ONE (13:35)
[2020-07-22] MEDS ORDERED: KETAMINE 10 MG/ML 20 ML VIAL ONE (13:35)
[2020-07-22] MEDS ORDERED: IV FLUID CONTINUATION 1,000 ML IV ONE (13:39)
[2020-07-22] MEDS ORDERED: SODIUM CHLORIDE 0.9% 50 ML with ceFAZolin 2,000 MG IV ONE ×2 (13:39)
[2020-07-22] MEDS ORDERED: IPRATROPIUM-ALBUTEROL 3 ML NEB INHALATION PRN (14:19)
--- NOTE | 2020-07-22 14:19 | P.CNPUL ---
History of Present Illness Consult date: 07/22/20 Requesting physician: Caesar Yun Reason for consult: COPD Chief complaint: Right hip pain History of present illness: This is a very pleasant 74-year-old female patient who follows with Dr. Vargas as her primary care provider. She has a history of hypertension, hyperlipidemia, gastroesophageal reflux disease, anxiety. She also has a history of chronic and ongoing tobacco dependence and suspected chronic obstructive pulmonary disease. She denies any significant shortness of breath, cough or congestion. Typically she is able to do her day-to-day activities without any significant shortness of breath. She is not on any maintenance inhalers in the outpatient setting. She presented here to the emergency room after sustaining a fall at home and having significant right hip pain. She denied any loss of consciousness. Sustaining a trip and fall and not from dizziness or lightheadedness. CT angiogram ruled out pulmonary embolism. There is a large hiatal hernia. Mild pulmonary fibrotic changes. No suspicious pulmonary mass. Lung gordon are clear consolidation. She is seen today in consultation on the regular medical floor. She is currently resting in bed. Awake and alert in no acute distress. She is maintaining O2 saturations in the mid 90s on room air. She's afebrile. Hemodynamically stable. Plan is for repair of the right hip fracture possibly today. Review of Systems REVIEW OF SYSTEMS: CONSTITUTIONAL: Denies any recent significant weight loss or weight gain. EYES: Denies change in vision. EARS, NOSE, MOUTH, THROAT: Denies headaches, denies sore throat. CARDIOVASCULAR: Denies chest pain, palpitations or syncopal episodes. RESPIRATORY: Denies shortness of breath, cough, congestion or hemoptysis. GASTROINTESTINAL: Denies change in appetite, denies abdominal pain GENITOURINARY: Denies hematuria, denies infections. MUSKULOSKELETAL: Positive for right hip pain INTEGUMENTARY: Denies rash, denies eczema. NEUROLOGICAL: Denies recent memory loss, no recent seizure activity. PSYCHIATRIC: Denies anxiety, denies depression. HEMATOLOGIC/LYMPHATIC: Denies anemia, denies enlarged lymph nodes. Past Medical History Past Medical History: GERD/Reflux, Hyperlipidemia, Hypertension Additional Past Medical History / Comment(s): glaucoma, parkinsons. History of Any Multi-Drug Resistant Organisms: None Reported Past Surgical History: Hysterectomy Additional Past Surgical History / Comment(s): eye sx 11/12 Past Psychological History: Anxiety Smoking Status: Current every day smoker Past Alcohol Use History: None Reported Past Drug Use History: None Reported Medications and Allergies Home Medications Medication Instructions Recorded Confirmed Type Metoclopramide HCl [Reglan] 10 mg PO TID 07/08/17 07/21/20 History Valsartan/Hydrochlorothiazide 1 tab PO DAILY 07/08/17 07/21/20 History [Valsartan-Hctz 160-12.5 mg Tab] Atorvastatin [Lipitor] 20 mg PO HS 11/15/17 07/21/20 History Omeprazole 20 mg PO DAILY 11/15/17 07/21/20 History hydrOXYzine pamoate [Vistaril] 25 - 50 mg PO Q6H PRN 11/15/17 07/21/20 History Cholecalciferol (Vitamin D3) 125 mcg PO DAILY 07/21/20 07/21/20 History [Vitamin D3] FLUoxetine HCL [PROzac] 40 mg PO DAILY 07/21/20 07/21/20 History Vitamin E 400 unit PO DAILY 07/21/20 07/21/20 History rOPINIRole HCL [Requip] 0.25 mg PO DAILY 07/21/20 07/21/20 History rOPINIRole HCL [Requip] 1 mg PO HS 07/21/20 07/21/20 History Allergies Allergy/AdvReac Type Severity Reaction Status Date / Time No Known Allergies Allergy Verified 07/21/20 22:51 Physical Exam Vitals: Vital Signs Temp Pulse Pulse Resp BP BP Pulse Ox 07/22/20 08:00 98.5 F 16 114/60 95 07/22/20 07:24 87 16 07/22/20 02:15 98.2 F 87 18 117/58 90 L 07/21/20 23:55 98.1 F 87 16 149/71 93 L 07/21/20 22:04 85 16 07/21/20 22:03 95 07/21/20 18:55 98.4 F 80 18 188/82 93 L Intake and Output 07/21/20 07/22/20 07/22/20 22:59 06:59 14:59 Intake Total 300 Output Total 650 100 Balance -350 -100 Intake: Intake, IV Titration 300 Amount Sodium Chloride 0.9% 1, 300 000 ml @ 75 mls/hr IV . [id number] [facility] Rx#:[id number] Output: Urine 650 100 Other: Voiding Method Indwelling Catheter Indwelling Catheter Weight 64.41 kg 64.41 kg GENERAL EXAM: Alert, pleasant 74-year-old female patient, on room air comfortable in no apparent distress. HEAD: Normocephalic. EYES: Normal reaction of pupils, equal size. NOSE: Clear with pink turbinates. THROAT: No erythema or exudates. NECK: No masses, no JVD. CHEST: No chest wall deformity. LUNGS: Equal air entry with no crackles, wheeze, rhonchi or dullness. CVS: S1 and S2 normal with no audible murmur, regular rhythm. ABDOMEN: No hepatosplenomegaly, normal bowel sounds, no guarding or rigidity. SPINE: No scoliosis or deformity SKIN: No rashes CENTRAL NERVOUS SYSTEM: No focal deficits, tone is normal in all 4 extremities. EXTREMITIES: External rotation of the right leg noted. There is no peripheral edema. No clubbing, no cyanosis. Peripheral pulses are intact. Results - Laboratory Findings CBC and BMP: 07/22/20 08:29 07/22/20 08:29 PT/INR, D-dimer PT 10.3 sec (9.0-12.0) 07/21/20 21:30 INR 1.0 (<1.2) 07/21/20 21:30 Abnormal lab findings: Abnormal Labs 07/21/20 07/21/20 07/22/20 19:41 20:20 08:29 WBC 19.1 H Neutrophils # 16.6 H Sodium 126 L 131 L Glucose 140 H 114 H AST 181 H 123 H ALT 184 H 146 H Albumin 3.40 L Albumin/Globulin Ratio 1.21 L 07/22/20 08:29 WBC 12.7 H Neutrophils # 10.5 H Sodium Glucose AST ALT Albumin Albumin/Globulin Ratio - Diagnostic Findings Chest x-ray: image reviewed CT scan - chest: image reviewed Assessment and Plan Assessment: 1 Status post trip and fall with right hip fracture, denied loss of consciousness 2 Chronic tobacco dependence was some suspected underlying COPD 3 History of anxiety 4 Hyperlipidemia 5 Hypertension Plan: The patient was seen and evaluated by Dr. Stacy Chest x-ray, CAT scans and labs reviewed Cleared for surgery from the pulmonary standpoint Educated regarding the use of the incentive spirometer Educated regarding the importance of complete smoking cessation Bronchodilators as needed We will continue to follow and make further recommendations based on her clinical status I, the cosigning physician, performed a history & physical examination of the patient. Lungs sounds are clear. Maintaining good O2 saturations in the 90s on room air. I discussed the assessment and plan of care with my nurse practitioner, Gretchen Llamas. I attest to the above consultation as dictated by her. Time with Patient: Greater than 30
--- NOTE | 2020-07-22 14:58 | P.OP ---
Date of Procedure: 07/22/20 Procedure(s) Performed: PREOPERATIVE DIAGNOSIS: Right hip femoral neck fracture POSTOPERATIVE DIAGNOSIS: Right hip femoral neck fracture OPERATION: Right hip cemented unipolar hemiarthroplasty. ANESTHESIA: Spinal ESTIMATED BLOOD LOSS: 50 ml. ENGINEER AUTOMATED EQUIPMENT: Alize Pulido PA-C (assistance with: patient positioning, retraction, exposure, hemostasis, leg positioning, implantation, irrigation, closure, dressing) COMPLICATIONS: None apparent. COMPONENTS IMPLANTED: Mireille LDFx cemented femoral stem; unipolar femoral head; neck extension augments as needed. INDICATIONS: Mrs. Nash is a 74-year-old female with a history of falling and sustaining a femoral neck fracture. The fracture is displaced completely and the limb is shortened by more than 1 inch . I have recommended surgical treatment with a cemented unipolar hemiarthroplasty. I have discussed this procedure in detail and explained the potential risks and complications as being inclusive of, but not limited to: Bleeding, infection, scarring, discomfort, blood vessel and/or nerve damage, limb length inequality, gait disturbance, blood clot, pulmonary embolism, , and other risks. The consent form has been signed. PROCEDURE: After appropriate consent was obtained, the patient was taken to the operating room and placed in supine position. Spinal anesthetic was administered and after confirmation of adequate anesthesia, the patient was placed into the lateral decubitus position with the affected side up. Care was t aken to make sure that all pressure points were adequately padded and a [place] hip positioner was utilized for positioning. The hip was prepped and draped in the usual aseptic fashion using a combination of Chloraprep and alcohol. [place] drape was used for the case and the patient received intravenous antibiotics prior to the incision. The incision was created directly over the greater trochanter and carried slightly posteriorly for a posterior approach to the hip. The incision was then deepened down to subcutaneous tissue and fascia santiago. Fascia santiago was split in line with the incision and split proximally along the fibers of the gluteus aamir. The underlying fibers of the muscle were teased apart using finger dissection and bleeding vessels were picked up and coagulated. Retractor was then placed posteriorly consisting of a blunt [place]. The short external rotators and capsule were exposed and good visualization of the attachment of the external rotators to the femur was established. The short external rotators and capsule were released using electrocautery from their femoral attachments. A hockey stick shaped incision was created in the capsule. Joint fluid and hemarthrosis was evacuated and the patient's hip was internally rotated to expose the fracture site. The femoral neck cut was created approximately 1 cm superior to the lesser trochanter using a reciprocating saw. The femoral head and neck fragment was removed and visualization and palpation of the acetabular vault showed intact hyaline cartilage with no bone exposure or significant degeneration. Attention was then directed back to the proximal femur. Retractors were placed around the proximal femur and box osteotome was used followed by canal finder and trochanteric reamer. Cylindrical reaming was performed. Progressive broaching was then performed starting with a #10 broach and progressing final size, in a position of 10-15 degrees anteversion. [place] anteversion was within 5 degrees of stem position. The final size broach had excellent fit and fill of the patient's metaphysis and diaphysis. Calcar planing was performed. Trial reduction was then performed starting with appropriately sized femoral head and various neck extensions to evaluate stability, limb length equality, and soft tissue tension. Once these parameters were satisfactory, the corresponding final components were then called for. Trial components were removed. The femoral canal was sized for the centralizer and cement plug. Once the cement plug had been inserted distal to the planned length of the femoral component, the canal was pulse lavaged and brushed to remove any unstable bone. It was then dried with a lap sponge. Cement was mixed under vacuum conditions to decrease porosity and inserted into a cement gun. Distal centralizer was placed onto the femoral component with a bit of cement. The cement was allowed to reach a slightly doughy consistency and then the canal was filled retrograde with the cement gun. Thumb pressurization was performed three times. The femoral component was then inserted with the previously determined degree of anteversion. Excess cement was removed before it hardened completely. The femoral head was then impacted onto the Britt taper. Blood and debris were removed from the acetabular socket and the hip was then reduced and checked for stability, limb length and soft tissue tension. These parameters were found to be satisfactory; the wound was then thoroughly irrigated with normal saline. Final hemostasis was obtained using electrocautery. Closure of the capsule was performed meticulously using #3 Vicryl suture. Four [id number] sutures were placed in the posterior capsule along with repair of the external rotators. The fascia santiago was then repaired using combination of #3 Vicryl suture in interrupted fashion and [place] in running fashion. 2-0 Vicryl suture was used for the subcutaneous tissues and 3-0 [place] for the skin. Dermabond tape was then applied. The patient tolerated the procedure well. There were no complications and the wound bed was dry and there was no need for drain placement. Sterile dressing was then applied and the patient was carefully removed from the operating room table, placed on the stretcher and was taken to the recovery room in stable condition. Sponge and needle counts were correct.
[2020-07-22] MEDS ORDERED: HYDROmorphone 0.5 MG/0.5 ML SYRINGE IVP PRN ×2 (15:12)
[2020-07-22] MEDS ORDERED: TEMAZEPAM 15 MG CAP PO PRN (15:12)
[2020-07-22] MEDS ORDERED: NALOXONE 0.4 MG/ML 1 ML VIAL IV PRN (15:12)
--- NOTE | 2020-07-22 15:35 | XR ---
EXAMINATION TYPE: XR Hip Limited RT DATE OF EXAM: 07/22/2020 COMPARISON: Yesterday HISTORY: Hip surgery TECHNIQUE: FINDINGS: A single view shows a right hip prosthesis. Components appear in anatomic position. IMPRESSION: No complicating process seen.
[2020-07-22] MEDS: ASPIRIN 81 MG PO SCH (19:51)
[2020-07-22] MEDS: HYDROcodone/APAP 5-325MG 1 EACH TAB PO PRN (19:51)
[2020-07-22] MEDS: SENNOSIDES-DOCUSATE SODIUM 1 EACH TAB PO SCH (19:51)
[2020-07-23] MEDS: HYDROcodone/APAP 5-325MG 1 EACH TAB PO PRN ×4 (03:11→23:52)
[2020-07-23 07:54] LABS: Basophils % (A) 0 %; Eosinophils # (A) 0.1 k/uL (0-0.7); Eosinophils % (A) 1 %; HCT 33.4 % (34.0-46.0); Lymphocytes # (A) 1.5 k/uL (1.0-4.8); Lymphocytes % (A) 15 %; MCH 32.7 pg (25.0-35.0); MCHC 33.1 g/dL (31.0-37.0); MCV 98.7 fL (80.0-100.0); Monocytes # (A) 0.6 k/uL (0-1.0); Monocytes % (A) 6 %; Neutrophils # (A) 7.7 k/uL (1.3-7.7); Neutrophils % (A) 77 %; Platelet Count 205 k/uL (150-450); RBC 3.38 m/uL (3.80-5.40); RDW 13.4 % (11.5-15.5); WBC 10.1 k/uL (3.8-10.6)
[2020-07-23] MEDS: hydroCHLOROthiazide 12.5 MG CAP PO SCH (09:09)
[2020-07-23] MEDS: VALSARTAN 160 MG TAB PO SCH (09:10)
[2020-07-23] MEDS: ASPIRIN 81 MG PO SCH ×2 (09:27→21:33)
[2020-07-23] MEDS: SODIUM CHLORIDE 0.9% 1,000 ML IV SCH ×2 (09:27→21:34)
[2020-07-23] MEDS: FLUoxetine HCL 20 MG CAP PO SCH (09:27)
--- NOTE | 2020-07-23 09:51 | P.PN ---
Subjective Progress Note Date: 07/23/20 Principal diagnosis: Right hip fracture. Status post arthroplasty right hip. This is a 74-year-old female who fell in her home last evening when she is trying to move an object with her foot. She lost her balance and fell on her right hip. She thinks she bumped her head slightly but has no complaint of headache or neck pain today. She denies loss of consciousness. Her main complaint is severe right hip pain. She was admitted through the emergency department last evening. We're planning or today for hemiarthroplasty of the right hip. The patient's O2 sat dropped into the low 80s at one point yesterday. She has been on O2 per nasal cannula. She has history of chronic COPD and is a pack-a-day smoker. She does not use oxygen at home. 07/23/2020: This is a pleasant 74-year-old female who is postop day #1 status post hemiarthroplasty of the right hip. She has no new complaints or concerns today. Vital signs and labs are stable. Her pulse ox is 94 on 2 L of O2 per nasal cannula. Objective - Vital Signs Vital signs: Vital Signs Temp 98.4 F 07/23/20 07:56 Pulse 71 07/23/20 07:56 Resp 16 07/23/20 07:56 BP 89/50 07/23/20 07:56 Pulse Ox 97 07/23/20 07:56 Intake & Output 07/22/20 07/23/20 07/23/20 18:59 06:59 18:59 Intake Total 500 800 236 Output Total 200 600 Balance 300 200 236 Weight 64.41 kg Intake: IV 500 Intake, IV Titration 800 Amount Sodium Chloride 0.9% 1, 600 000 ml @ 75 mls/hr IV . [id number] ASHWINI Rx#:[id number] ceFAZolin 2 gm In Sodium 200 Chloride 0.9% 50 ml @ 100 mls/hr IVPB Q8H ASHWINI Rx#: [id number] Oral 236 Output: Urine 150 600 Estimated Blood Loss 50 Other: Voiding Method Indwelling Catheter Indwelling Catheter Indwelling Catheter - Exam This is a pleasant 74-year-old female in no acute distress. She is alert and oriented 3. Exam of the right hip reveals that her dressing is clean, dry and intact. She has full foot and ankle motion without difficulty or pain. Neurovascular status to the lower extremity is intact. - Labs CBC & Chem 7: 07/23/20 07:23 07/22/20 08:29 Labs: Abnormal Lab Results - Last 24 Hours (Table) 07/22/20 07/23/20 Range/Units 08:29 07:23 RBC 3.38 L (3.80-5.40) m/uL Hgb 11.0 L (11.4-16.0) gm/dL Hct 33.4 L (34.0-46.0) % Sodium 131 L (135-145) mmol/L Glucose 114 H (70-110) mg/dL AST 123 H (13-35) U/L ALT 146 H (8-44) U/L Albumin 3.40 L (3.80-4.90) g/dL Albumin/Globulin Ratio 1.21 L (1.60-3.17) g/dL Assessment and Plan (1) Status post-operative repair of closed fracture of right hip Current Visit: Yes Status: Acute Code(s): Z98.890 - OTHER SPECIFIED POSTPROCEDURAL STATES; Z87.81 - PERSONAL HISTORY OF (HEALED) TRAUMATIC FRACTURE SNOMED Code(s): 010530449 (2) Closed right hip fracture Current Visit: Yes Status: Acute Code(s): S72.001A - FRACTURE OF UNSP PART OF NECK OF RIGHT FEMUR, INIT SNOMED Code(s): 482787246 (3) Hypoxia Current Visit: Yes Status: Acute Code(s): R09.02 - HYPOXEMIA SNOMED Code(s): 384144451 Plan: The clinical findings are discussed with the patient. She'll begin physical therapy and I facial therapy today. She would like to go home as opposed to inpatient rehab. We will see how she does over the next couple of days with physical therapy. She is weightbearing as tolerated.
[2020-07-23 11:36] LABS: African American GFR (CKD) 105.5 (60.0-200.0); Albumin 2.7 g/dL (3.80-4.90); Albumin/Globulin Ratio 1.13 (1.60-3.17); Anion Gap 2.4 mmol/L (4.00-12.00); Calcium 8.7 mg/dL (8.7-10.3); Carbon Dioxide 27.6 mmol/L (21.6-31.8); Globulin 2.4 g/dL (1.6-3.3); Non-African American GFR(CKD) 91.1 (60.0-200.0); Potassium 3.9 mmol/L (3.5-5.5); Total Bilirubin 0.6 mg/dL (0.3-1.2); Total Protein 5.1 g/dL (6.2-8.2)
[2020-07-23] MEDS ORDERED: hydrOXYzine pamoate 25 MG CAP PO PRN (13:29)
[2020-07-23] MEDS: METOCLOPRAMIDE 10 MG TAB PO SCH ×2 (15:48→21:34)
--- NOTE | 2020-07-23 17:09 | P.PN ---
Subjective Progress Note Date: 07/23/20 Principal diagnosis: Acute hypoxic respiratory failure This is a very pleasant 74-year-old female patient who follows with Dr. Vargas as her primary care provider. She has a history of hypertension, hyperlipidemia, gastroesophageal reflux disease, anxiety. She also has a histo ry of chronic and ongoing tobacco dependence and suspected chronic obstructive pulmonary disease. She denies any significant shortness of breath, cough or congestion. Typically she is able to do her day-to-day activities without any significant shortness of breath. She is not on any maintenance inhalers in the outpatient setting. She presented here to the emergency room after sustaining a fall at home and having significant right hip pain. She denied any loss of consciousness. Sustaining a trip and fall and not from dizziness or lightheadedness. CT angiogram ruled out pulmonary embolism. There is a large hiatal hernia. Mild pulmonary fibrotic changes. No suspicious pulmonary mass. Lung gordon are clear consolidation. She is seen today in consultation on the regular medical floor. She is currently resting in bed. Awake and alert in no acute distress. She is maintaining O2 saturations in the mid 90s on room air. She's afebrile. Hemodynamically stable. Plan is for repair of the right hip fracture possibly today. On 07/23/2020 patient seen in follow-up on medical surgical floor. She is sitting up in the recliner, in no acute distress, she is off the oxygen, room air pulse ox is 97%, she is working on incentive spirometer, I assisted 1500 mL today, lung sounds reveal coarse bibasilar crackles, patient has a congested cough, she needs encouragement to deep breathe and cough, she's been afebrile, hemodynamically she is slightly on the hypotensive side earlier was 89/50, with improvement through the day of her blood pressure and current reading of 102/58, denies any acute distress, no cough, no hemoptysis, no chest pain, chest CT showed no evidence of pulmonary embolism. Did show large hiatal hernia, mild pulmonary fibrotic changes, no suspicious pulmonary mass. No acute events overnight. Objective - Vital Signs Vital signs: Vital Signs Temp 97.7 F 07/23/20 14:33 Pulse 86 07/23/20 14:33 Resp 16 07/23/20 14:33 BP 102/58 07/23/20 14:33 Pulse Ox 88 L 07/23/20 14:33 Intake & Output 07/22/20 07/23/20 07/23/20 18:59 06:59 18:59 Intake Total 500 800 472 Output Total 200 600 300 Balance 300 200 172 Weight 64.41 kg Intake: IV 500 Intake, IV Titration 800 Amount Sodium Chloride 0.9% 1, 600 000 ml @ 75 mls/hr IV . [id number] ASHWINI Rx#:[id number] ceFAZolin 2 gm In Sodium 200 Chloride 0.9% 50 ml @ 100 mls/hr IVPB Q8H ASHWINI Rx#: [id number] Oral 472 Output: Urine 150 600 300 Estimated Blood Loss 50 Other: Voiding Method Indwelling Catheter Indwelling Catheter Indwelling Catheter - Exam GENERAL EXAM: Alert, very pleasant, 74-year-old white female, on room air with pulse ox of 97% comfortable in no apparent distress. HEAD: Normocephalic/atraumatic. EYES: Normal reaction of pupils, equal size. Conjunctiva pink, sclera white. NOSE: Clear with pink turbinates. THROAT: No erythema or exudates. NECK: No masses, no JVD, no thyroid enlargement, no adenopathy. CHEST: No chest wall deformity. Symmetrical expansion. LUNGS: Equal air entry with coarse bibasilar crackles, but no wheezes CVS: Regular rate and rhythm, normal S1 and S2, no gallops, no murmurs, no rubs ABDOMEN: Soft, nontender. No hepatosplenomegaly, normal bowel sounds, no guarding or rigidity. EXTREMITIES: No clubbing, no edema, no cyanosis, 2+ pulses and upper and lower extremities. MUSCULOSKELETAL: Muscle strength and tone normal. Right hip incision is covered with surgical dressing, clean dry and intact, distal pulses intact SPINE: No scoliosis or deformity SKIN: No rashes CENTRAL NERVOUS SYSTEM: Alert and oriented -3. No focal deficits, tone is normal in all 4 extremities. PSYCHIATRIC: Alert and oriented -3. Appropriate affect. Intact judgment and insight. - Labs CBC & Chem 7: 07/23/20 07:23 07/23/20 07:23 Labs: Abnormal Lab Results - Last 24 Hours (Table) 07/23/20 07/23/20 Range/Units 07:23 07:23 RBC 3.38 L (3.80-5.40) m/uL Hgb 11.0 L (11.4-16.0) gm/dL Hct 33.4 L (34.0-46.0) % Sodium 130 L (135-145) mmol/L Anion Gap 2.40 L (4.00-12.00) mmol/L AST 87 H (13-35) U/L ALT 83 H (8-44) U/L Total Protein 5.1 L (6.2-8.2) g/dL Albumin 2.70 L (3.80-4.90) g/dL Albumin/Globulin Ratio 1.13 L (1.60-3.17) g/dL Assessment and Plan Plan: Assessment: #1. Acute hypoxic respiratory failure likely related to hypoventilation, chest x-ray showed no acute cardiopulmonary process, CTA chest showed no evidence of pulmonary embolism, did show mild pulmonary fibrotic changes, no suspicious pulmonary mass #2. Chronic tobacco dependence with some suspected underlying COPD #3. History of anxiety #4. Hypertension #5. Hyperlipidemia Plan: Encouraging deep breathing and coughing, incentive spirometry use, will and bronchodilators 3 times daily and as needed. Follow-up chest x-ray in the morning, we'll continue to follow I performed a history & physical examination of the patient and discussed their management with my nurse practitioner, Kelsi Culver. I reviewed the nurse practitioner's note and agree with the documented findings and plan of care. Lung sounds are positive for diminished with coarse rales The findings and the impression was discussed with the patient. I attest to the documentation by the nurse practitioner. Time with Patient: Less than 30
[2020-07-23] MEDS: IPRATROPIUM-ALBUTEROL 3 ML NEB INHALATION SCH (18:52)
--- NOTE | 2020-07-23 19:49 | P.PN ---
Subjective Progress Note Date: 07/23/20 Shira Nash, is a 74-year-old female who presented to [facility] emergency room with a chief complaint of fall and right hip pain, patient stated that she tripped and fell and landed on her right hip about an hour and a half prior to presentation she was complaining of pain in the right hip radiating to the back and to the right lower extremity she also had mild trauma to her head, she denies any loss of consciousness no headache no change in her vision. Patient was evaluated in the emergency room, her vital exam on presentation revealed a temperature of 98.4 pulse 80 respiration 18 blood pressure 188/82 pulse ox 93% on room air however subsequently her pulse ox dropped she was put on a nonrebreather mask, her white blood count on presentation was 19.1 hemoglobin 14.1 platelet count 298 INR 1.0 sodium 126 potassium 4.0 chloride 98 glucose 140 AST was elevated at 180 one a LT elevated at 184 alkaline phosphatase normal at 98 urine analysis was normal without any evidence of infection rob virus PCR was negative, chest x-ray done in the emergency room revealed evidence of hiatal hernia without any active cardiopulmonary disease. Due to hypoxia patient underwent CT angiogram of the chest it was negative for pulmonary embolism and revealed mild pulmonary fibrotic changes no suspicious pulmonary mass. EKG was done in the emergency room and revealed normal sinus rhythm with evidence of possible old septal infarct no ST or T-wave changes. Patient was admitted to medical floor under orthopedic surgery, medical consultation was requested for surgical clearance. Patient was seen and examined on the medical floor on 07/22/2020, she is alert and oriented 3 in no apparent distress she is complaining of right hip pain otherwise she denies any complaints there is no fever or chills no headache or dizziness no chest pain no shortness of breath no cough no nausea or vomiting no abdominal pain no diarrhea no blood in the stools no burning with urination no frequency or urgency and no hematuria no change in her vision or her speech no numbness or weakness in any of her extremities. Patient interviewed in details she has a known history of hypertension, hyperlip idemia, gastroesophageal reflux disease, history of anxiety, and history of tremor with possible Parkinson disease. She denies any history of coronary artery disease no history of chest pain or angina or myocardial infarction in the past, no history of congestive heart failure. She denies any history of lung disease no history of COPD or emphysema no history of asthma however patient is a lifelong smoker she smokes 1 pack per day she has been smoking since age 20. On 07/23/2020 patient was seen and examined on the medical floor she is alert and oriented in no distress he denies any complaints at this time there is no fever or chills no headache or dizziness no chest pain no shortness of breath no cough no nausea or vomiting no abdominal pain no diarrhea no blood in the stools no burning with urination no frequency or urgency and no hematuria, Objective - Vital Signs Vital signs: Vital Signs Temp 98.4 F 07/23/20 07:56 Pulse 71 07/23/20 07:56 Resp 16 07/23/20 07:56 BP 89/50 07/23/20 07:56 Pulse Ox 97 07/23/20 07:56 Intake & Output 07/22/20 07/23/20 07/23/20 18:59 06:59 18:59 Intake Total 500 800 472 Output Total 200 600 Balance 300 200 472 Weight 64.41 kg Intake: IV 500 Intake, IV Titration 800 Amount Sodium Chloride 0.9% 1, 600 000 ml @ 75 mls/hr IV . [id number] ASHWINI Rx#:[id number] ceFAZolin 2 gm In Sodium 200 Chloride 0.9% 50 ml @ 100 mls/hr IVPB Q8H ASHWINI Rx#: [id number] Oral 472 Output: Urine 150 600 Estimated Blood Loss 50 Other: Voiding Method Indwelling Catheter Indwelling Catheter Indwelling Catheter - Exam In general patient is alert and oriented 3 in no apparent distress HEENT head normocephalic and atraumatic Neck is supple no JVD no goiter no lymphadenopathy Chest exam reveals a few scattered rhonchi no wheezing Cardiac exam reveals regular heart sounds S1 and S2 no gallops no murmurs nor rubs Abdomen is soft nontender no organomegaly with normal bowel sounds Extremity exam reveals no edema no cyanosis or clubbing peripheral pulses are palpable in both dorsalis pedis Neurological examination reveals no gross focal deficit - Labs CBC & Chem 7: 07/23/20 07:23 07/23/20 07:23 Labs: Abnormal Lab Results - Last 24 Hours (Table) 07/23/20 07/23/20 Range/Units 07:23 07:23 RBC 3.38 L (3.80-5.40) m/uL Hgb 11.0 L (11.4-16.0) gm/dL Hct 33.4 L (34.0-46.0) % Sodium 130 L (135-145) mmol/L Anion Gap 2.40 L (4.00-12.00) mmol/L AST 87 H (13-35) U/L ALT 83 H (8-44) U/L Total Protein 5.1 L (6.2-8.2) g/dL Albumin 2.70 L (3.80-4.90) g/dL Albumin/Globulin Ratio 1.13 L (1.60-3.17) g/dL Assessment and Plan Plan: 1. Fall with right hip fracture patient is scheduled for surgery today. Patient is at higher risk due to her age, her prolonged history of smoking, mild hypoxia on presentation, however there is no medical contraindication for surgery, no abnormality seen on EKG, chest x-ray, and CT angiogram of the chest, no evidence of any infectious process on chest x-ray, urine analysis, no skin ulceration or infection. Pulmonary consultation is requested for evaluation and management of COPD with hypoxia 2. Elevated liver enzyme cause is unclear at this time will discontinue Lipitor, if liver enzymes are not improving will check liver ultrasound, and rule out viral hepatitis. 3. Underlying history of hypertension 4. Underlying history of Parkinson disease maintained on Requip 5. Underlying history of depression with anxiety disorder 6. Underlying history of hyperlipidemia at this point will hold Lipitor due to elevated liver enzymes 7. Underlying history of gastroesophageal reflux disease with evidence of hiatal hernia continue At this time patient will have surgery today, she is at higher risk however no contraindication for surgery Will follow closely post surgery Pulmonary consultation requested in regard to COPD hypoxia and prolonged history of smoking
[2020-07-23] MEDS ORDERED: ATORVASTATIN 20 MG TAB PO SCH (21:00)
[2020-07-23] MEDS: SENNOSIDES-DOCUSATE SODIUM 1 EACH TAB PO SCH (21:33)
[2020-07-24] MEDS: HYDROcodone/APAP 5-325MG 1 EACH TAB PO PRN ×3 (07:17→19:55)
[2020-07-24] MEDS: FLUoxetine HCL 20 MG CAP PO SCH (08:23)
[2020-07-24] MEDS: ASPIRIN 81 MG PO SCH ×2 (08:23→20:26)
[2020-07-24] MEDS: PANTOPRAZOLE 40 MG TABLET PO SCH (08:23)
[2020-07-24] MEDS: CHOLECALCIFEROL 1,000 UNIT TAB PO SCH (08:23)
[2020-07-24] MEDS: hydroCHLOROthiazide 12.5 MG CAP PO SCH (08:24)
[2020-07-24] MEDS: VITAMIN E (DL,TOCOPHERYL ACET) 400 UNIT CAP PO SCH (08:24)
[2020-07-24] MEDS: METOCLOPRAMIDE 10 MG TAB PO SCH ×3 (08:24→20:26)
[2020-07-24] MEDS: VALSARTAN 160 MG TAB PO SCH (08:25)
--- NOTE | 2020-07-24 08:34 | XR ---
EXAMINATION TYPE: XR chest 1V portable DATE OF EXAM: 07/24/2020 COMPARISON: Prior chest x-ray and chest CT 07/21/2020 HISTORY: Hypoxia TECHNIQUE: Single frontal view of the chest is obtained. FINDINGS: There are overlying artifacts and the patient is rotated. No evident pneumothorax or pleur al effusion. Cardiomediastinal silhouette, pulmonary vascularity and [place] are stable. Patchy bilatera l lung density is present. Partial intrathoracic stomach is present. IMPRESSION: Hiatal hernia and atelectasis versus scarring. Question airspace disease in the left upp er lobe, follow-up PA and lateral chest x-ray suggested. Nodular 5 mm density seen on CT in the right upper lobe is not seen on plain film, follow-up chest CT recommended.
--- NOTE | 2020-07-24 08:56 | P.PN ---
Subjective Progress Note Date: 07/24/20 Principal diagnosis: Right hip fracture. Status post arthroplasty right hip. This is a 74-year-old female who fell in her home last evening when she is trying to move an object with her foot. She lost her balance and fell on her right hip. She thinks she bumped her head slightly but has no complaint of headache or neck pain today. She denies loss of consciousness. Her main complaint is severe right hip pain. She was admitted through the emergency department last evening. We're planning or today for hemiarthroplasty of the right hip. The patient's O2 sat dropped into the low 80s at one point yesterday. She has been on O2 per nasal cannula. She has history of chronic COPD and is a pack-a-day smoker. She does not use oxygen at home. 07/23/2020: This is a pleasant 74-year-old female who is postop day #1 status post hemiarthroplasty of the right hip. She has no new complaints or concerns today. Vital signs and labs are stable. Her pulse ox is 94 on 2 L of O2 per nasal cannula. 07/24/2020: The patient is doing well today. She is postop day #2 status post hemiarthroplasty of the right hip. She has no new complaints or concerns today. She is doing fairly well with physical therapy. She would rather not go to rehab if she doesn't have to. She is anticipating discharge to home tomorrow. Objective - Vital Signs Vital signs: Vital Signs Temp 98.1 F 07/24/20 07:00 Pulse 87 07/24/20 07:00 Resp 18 07/24/20 01:37 BP 132/75 07/24/20 07:00 Pulse Ox 100 07/24/20 07:00 Intake & Output 07/23/20 07/24/20 07/24/20 18:59 06:59 18:59 Intake Total 590 Output Total 300 60 Balance 290 -60 Intake: Oral 590 Output: Urine 300 60 Other: Voiding Method Indwelling Catheter # Voids 1 - Exam This is a pleasant 74-year-old female in no acute distress. She is alert and oriented 3. Exam of the right hip reveals that her dressing is clean, dry and intact. She has full foot and ankle motion without difficulty or pain. Neurovascular status to the lower extremity is intact. - Labs CBC & Chem 7: 07/23/20 07:23 07/23/20 07:23 Labs: Abnormal Lab Results - Last 24 Hours (Table) 07/23/20 Range/Units 07:23 Sodium 130 L (135-145) mmol/L Anion Gap 2.40 L (4.00-12.00) mmol/L AST 87 H (13-35) U/L ALT 83 H (8-44) U/L Total Protein 5.1 L (6.2-8.2) g/dL Albumin 2.70 L (3.80-4.90) g/dL Albumin/Globulin Ratio 1.13 L (1.60-3.17) g/dL Assessment and Plan (1) Status post-operative repair of closed fracture of right hip Current Visit: Yes Status: Acute Code(s): Z98.890 - OTHER SPECIFIED POSTPROCEDURAL STATES; Z87.81 - PERSONAL HISTORY OF (HEALED) TRAUMATIC FRACTURE SNOMED Code(s): 088531974 (2) Closed right hip fracture Current Visit: Yes Status: Acute Code(s): S72.001A - FRACTURE OF UNSP PART OF NECK OF RIGHT FEMUR, INIT SNOMED Code(s): 959202262 (3) Hypoxia Current Visit: Yes Status: Acute Code(s): R09.02 - HYPOXEMIA SNOMED Code(s): 967316551 Plan: The clinical findings are discussed with the patient. Continue physical therapy today. She would like to go home as opposed to inpatient rehab. If she continues to do well she may be discharged to home tomorrow.
[2020-07-24] MEDS: IPRATROPIUM-ALBUTEROL 3 ML NEB INHALATION SCH ×3 (09:44→21:10)
--- NOTE | 2020-07-24 17:42 | P.PN ---
Subjective Progress Note Date: 07/24/20 Principal diagnosis: Acute hypoxic respiratory failure This is a very pleasant 74-year-old female patient who follows with Dr. Vargas as her primary care provider. She has a history of hypertension, hyperlipidemia, gastroesophageal reflux disease, anxiety. She also has a histo ry of chronic and ongoing tobacco dependence and suspected chronic obstructive pulmonary disease. She denies any significant shortness of breath, cough or congestion. Typically she is able to do her day-to-day activities without any significant shortness of breath. She is not on any maintenance inhalers in the outpatient setting. She presented here to the emergency room after sustaining a fall at home and having significant right hip pain. She denied any loss of consciousness. Sustaining a trip and fall and not from dizziness or lightheadedness. CT angiogram ruled out pulmonary embolism. There is a large hiatal hernia. Mild pulmonary fibrotic changes. No suspicious pulmonary mass. Lung gordon are clear consolidation. She is seen today in consultation on the regular medical floor. She is currently resting in bed. Awake and alert in no acute distress. She is maintaining O2 saturations in the mid 90s on room air. She's afebrile. Hemodynamically stable. Plan is for repair of the right hip fracture possibly today. On 07/23/2020 patient seen in follow-up on medical surgical floor. She is sitting up in the recliner, in no acute distress, she is off the oxygen, room air pulse ox is 97%, she is working on incentive spirometer, I assisted 1500 mL today, lung sounds reveal coarse bibasilar crackles, patient has a congested cough, she needs encouragement to deep breathe and cough, she's been afebrile, hemodynamically she is slightly on the hypotensive side earlier was 89/50, with improvement through the day of her blood pressure and current reading of 102/58, denies any acute distress, no cough, no hemoptysis, no chest pain, chest CT showed no evidence of pulmonary embolism. Did show large hiatal hernia, mild pulmonary fibrotic changes, no suspicious pulmonary mass. No acute events overnight. On 07/24/2020 patient is seen in follow-up on medical surgical. She is calm and comfortable, she is on to half liters of oxygen, she is sitting up in the chair, her pulse ox is 97%, she denies worsening dyspnea, lung sounds reveal some bibasilar crackles, he still receiving 0.9 normal sitting at a rate of 75 ML per hour, her chest x-ray today was reviewed showing hiatal hernia and atelectasis, questionable airspace disease in the left upper lobe. Clinically stable, she is working physical therapy. Possible discharge home for tomorrow is being planned Objective - Vital Signs Vital signs: Vital Signs Temp 97.5 F L 07/24/20 16:42 Pulse 90 07/24/20 16:42 Resp 14 07/24/20 16:42 BP 96/58 07/24/20 16:42 Pulse Ox 97 07/24/20 16:42 Intake & Output 07/23/20 07/24/20 07/24/20 18:59 06:59 18:59 Intake Total 590 Output Total 300 60 Balance 290 -60 Intake: Oral 590 Output: Urine 300 60 Other: Voiding Method Indwelling Catheter # Voids 1 1 - Exam GENERAL EXAM: Alert, very pleasant, 74-year-old white female, on room air with pulse ox of 97% comfortable in no apparent distress. HEAD: Normocephalic/atraumatic. EYES: Normal reaction of pupils, equal size. Conjunctiva pink, sclera white. NOSE: Clear with pink turbinates. THROAT: No erythema or exudates. NECK: No masses, no JVD, no thyroid enlargement, no adenopathy. CHEST: No chest wall deformity. Symmetrical expansion. LUNGS: Equal air entry with coarse bibasilar crackles, but no wheezes CVS: Regular rate and rhythm, normal S1 and S2, no gallops, no murmurs, no rubs ABDOMEN: Soft, nontender. No hepatosplenomegaly, normal bowel sounds, no guarding or rigidity. EXTREMITIES: No clubbing, no edema, no cyanosis, 2+ pulses and upper and lower extremities. MUSCULOSKELETAL: Muscle strength and tone normal. Right hip incision is covered with surgical dressing, clean dry and intact, distal pulses intact SPINE: No scoliosis or deformity SKIN: No rashes CENTRAL NERVOUS SYSTEM: Alert and oriented -3. No focal deficits, tone is normal in all 4 extremities. PSYCHIATRIC: Alert and oriented -3. Appropriate affect. Intact judgment and insight. - Labs CBC & Chem 7: 07/23/20 07:23 07/23/20 07:23 Assessment and Plan Plan: Assessment: #1. Acute hypoxic respiratory failure likely related to hypoventilation, chest x-ray showed no acute cardiopulmonary process, CTA chest showed no evidence of pulmonary embolism, did show mild pulmonary fibrotic changes, no suspicious pulmonary mass #2. Chronic tobacco dependence with some suspected underlying COPD #3. History of anxiety #4. Hypertension #5. Hyperlipidemia Plan: Continue encouraging deep breathing and coughing, today's chest x-ray has been reviewed, showing hiatal hernia and atelectasis. Vital signs have been stable, patient has been afebrile, diffuse crackles at bilateral bases on physical exam, we will discontinue IV fluids, wean FiO2, encouraging deep breathing and coughing, discharge home is pending possibly tomorrow I performed a history & physical examination of the patient and discussed their management with my nurse practitioner, Kelsi Culver. I reviewed the nurse practitioner's note and agree with the documented findings and plan of care. Lung sounds are positive for diminished with coarse rales The findings and the impression was discussed with the patient. I attest to the documentation by the nurse practitioner. Time with Patient: Less than 30
--- NOTE | 2020-07-24 18:03 | P.PN ---
Subjective Progress Note Date: 07/24/20 Shira Nash, is a 74-year-old female who presented to [facility] emergency room with a chief complaint of fall and right hip pain, patient stated that she tripped and fell and landed on her right hip about an hour and a half prior to presentation she was complaining of pain in the right hip radiating to the back and to the right lower extremity she also had mild trauma to her head, she denies any loss of consciousness no headache no change in her vision. Patient was evaluated in the emergency room, her vital exam on presentation revealed a temperature of 98.4 pulse 80 respiration 18 blood pressure 188/82 pulse ox 93% on room air however subsequently her pulse ox dropped she was put on a nonrebreather mask, her white blood count on presentation was 19.1 hemoglobin 14.1 platelet count 298 INR 1.0 sodium 126 potassium 4.0 chloride 98 glucose 140 AST was elevated at 180 one a LT elevated at 184 alkaline phosphatase normal at 98 urine analysis was normal without any evidence of infection rob virus PCR was negative, chest x-ray done in the emergency room revealed evidence of hiatal hernia without any active cardiopulmonary disease. Due to hypoxia patient underwent CT angiogram of the chest it was negative for pulmonary embolism and revealed mild pulmonary fibrotic changes no suspicious pulmonary mass. EKG was done in the emergency room and revealed normal sinus rhythm with evidence of possible old septal infarct no ST or T-wave changes. Patient was admitted to medical floor under orthopedic surgery, medical consultation was requested for surgical clearance. Patient was seen and examined on the medical floor on 07/22/2020, she is alert and oriented 3 in no apparent distress she is complaining of right hip pain otherwise she denies any complaints there is no fever or chills no headache or dizziness no chest pain no shortness of breath no cough no nausea or vomiting no abdominal pain no diarrhea no blood in the stools no burning with urination no frequency or urgency and no hematuria no change in her vision or her speech no numbness or weakness in any of her extremities. Patient interviewed in details she has a known history of hypertension, hyperlip idemia, gastroesophageal reflux disease, history of anxiety, and history of tremor with possible Parkinson disease. She denies any history of coronary artery disease no history of chest pain or angina or myocardial infarction in the past, no history of congestive heart failure. She denies any history of lung disease no history of COPD or emphysema no history of asthma however patient is a lifelong smoker she smokes 1 pack per day she has been smoking since age 20. On 07/23/2020 patient was seen and examined on the medical floor she is alert and oriented in no distress he denies any complaints at this time there is no fever or chills no headache or dizziness no chest pain no shortness of breath no cough no nausea or vomiting no abdominal pain no diarrhea no blood in the stools no burning with urination no frequency or urgency and no hematuria, On 07/24/2020 patient was seen and examined on the medical floor she is alert and oriented 3 in no apparent distress she is complaining of pain in her hip otherwise she denies any complaints there is no fever or chills no headache or dizziness no chest pain no shortness of breath no cough no nausea or vomiting no abdominal pain no diarrhea and no urinary symptoms Objective - Vital Signs Vital signs: Vital Signs Temp 98.1 F 07/24/20 07:00 Pulse 82 07/24/20 09:53 Resp 14 07/24/20 09:53 BP 132/75 07/24/20 07:00 Pulse Ox 100 07/24/20 07:00 Intake & Output 07/23/20 07/24/20 07/24/20 18:59 06:59 18:59 Intake Total 590 Output Total 300 60 Balance 290 -60 Intake: Oral 590 Output: Urine 300 60 Other: Voiding Method Indwelling Catheter # Voids 1 - Exam In general patient is alert and oriented 3 in no apparent distress HEENT head normocephalic and atraumatic Neck is supple no JVD no goiter no lymphadenopathy Chest exam reveals a few scattered rhonchi no wheezing Cardiac exam reveals regular heart sounds S1 and S2 no gallops no murmurs nor rubs Abdomen is soft nontender no organomegaly with normal bowel sounds Extremity exam reveals no edema no cyanosis or clubbing peripheral pulses are palpable in both dorsalis pedis Neurological examination reveals no gross focal deficit - Labs CBC & Chem 7: 07/23/20 07:23 07/23/20 07:23 Labs: Abnormal Lab Results - Last 24 Hours (Table) 07/23/20 Range/Units 07:23 Sodium 130 L (135-145) mmol/L Anion Gap 2.40 L (4.00-12.00) mmol/L AST 87 H (13-35) U/L ALT 83 H (8-44) U/L Total Protein 5.1 L (6.2-8.2) g/dL Albumin 2.70 L (3.80-4.90) g/dL Albumin/Globulin Ratio 1.13 L (1.60-3.17) g/dL Assessment and Plan Plan: 1. Fall with right hip fracture patient is scheduled for surgery today. Patient is at higher risk due to her age, her prolonged history of smoking, mild hypoxia on presentation, however there is no medical contraindication for surgery, no abnormality seen on EKG, chest x-ray, and CT angiogram of the chest, no evidence of any infectious process on chest x-ray, urine analysis, no skin ulceration or infection. Pulmonary consultation is requested for evaluation and management of COPD with hypoxia 2. Elevated liver enzyme cause is unclear at this time will discontinue Lipitor, if liver enzymes are not improving will check liver ultrasound, and rule out viral hepatitis. 3. Underlying history of hypertension 4. Underlying history of Parkinson disease maintained on Requip 5. Underlying history of depression with anxiety disorder 6. Underlying history of hyperlipidemia at this point will hold Lipitor due to elevated liver enzymes 7. Underlying history of gastroesophageal reflux disease with evidence of hiatal hernia continue At this time patient will have surgery today, she is at higher risk however no contraindication for surgery Will follow closely post surgery Pulmonary consultation requested in regard to COPD hypoxia and prolonged history of smoking
[2020-07-24] MEDS: SODIUM CHLORIDE 0.9% 1,000 ML IV SCH (18:18)
[2020-07-24] MEDS: SENNOSIDES-DOCUSATE SODIUM 1 EACH TAB PO SCH (20:26)
[2020-07-25 06:06] LABS: Basophils # (A) 0.1 k/uL (0-0.2); Basophils % (A) 0 %; Eosinophils # (A) 0.2 k/uL (0-0.7); Eosinophils % (A) 2 %; HCT 30.9 % (34.0-46.0); HGB 10.4 gm/dL (11.4-16.0); Lymphocytes # (A) 1.1 k/uL (1.0-4.8); Lymphocytes % (A) 11 %; MCHC 33.8 g/dL (31.0-37.0); MCV 97.5 fL (80.0-100.0); Mean Platelet Volume 7.5; Monocytes # (A) 0.5 k/uL (0-1.0); Monocytes % (A) 5 %; Neutrophils # (A) 8.6 k/uL (1.3-7.7); Neutrophils % (A) 80 %; Platelet Count 227 k/uL (150-450); RBC 3.17 m/uL (3.80-5.40); RDW 12.8 % (11.5-15.5); WBC 10.7 k/uL (3.8-10.6)
[2020-07-25] MEDS: IPRATROPIUM-ALBUTEROL 3 ML NEB INHALATION SCH ×3 (07:24→21:11)
[2020-07-25] MEDS: CHOLECALCIFEROL 1,000 UNIT TAB PO SCH (07:53)
[2020-07-25] MEDS: ASPIRIN 81 MG PO SCH ×2 (07:54→20:12)
[2020-07-25] MEDS: PANTOPRAZOLE 40 MG TABLET PO SCH (07:54)
[2020-07-25] MEDS: HYDROcodone/APAP 5-325MG 1 EACH TAB PO PRN ×2 (07:55→16:51)
[2020-07-25] MEDS: hydroCHLOROthiazide 12.5 MG CAP PO SCH (07:55)
[2020-07-25] MEDS: VITAMIN E (DL,TOCOPHERYL ACET) 400 UNIT CAP PO SCH (07:56)
[2020-07-25] MEDS: METOCLOPRAMIDE 10 MG TAB PO SCH ×3 (07:56→20:12)
[2020-07-25] MEDS: FLUoxetine HCL 20 MG CAP PO SCH (07:56)
[2020-07-25] MEDS: VALSARTAN 160 MG TAB PO SCH (07:56)
[2020-07-25 10:56] LABS: African American GFR (CKD) 112.1 (60.0-200.0); Albumin 2.6 g/dL (3.80-4.90); Albumin/Globulin Ratio 1.13 (1.60-3.17); Anion Gap 3.7 mmol/L (4.00-12.00); Calcium 9.2 mg/dL (8.7-10.3); Carbon Dioxide 30.3 mmol/L (21.6-31.8); Globulin 2.3 g/dL (1.6-3.3); Non-African American GFR(CKD) 96.7 (60.0-200.0); Potassium 3.8 mmol/L (3.5-5.5); Total Bilirubin 0.6 mg/dL (0.2-1.2); Total Protein 4.9 g/dL (6.2-8.2)
--- NOTE | 2020-07-25 12:28 | P.DS ---
Providers Date of admission: 07/21/20 22:41 Expected date of discharge: 07/25/20 Attending physician: Caesar Yun Consults: 07/21/20 21:34 Consult Physician Routine Consulting Provider: Tru Apple Consult Reason/Comments: Hypoxia; Medical management Do you want consulting provider notified?: Already Contacted 07/22/20 09:15 Consult Physician Routine Consulting Provider: Britt Stacy Consult Reason/Comments: COPD Do you want consulting provider notified?: Yes Primary care physician: Julieta Vargas - Discharge Diagnosis(es) (1) Status post-operative repair of closed fracture of right hip Current Visit: Yes Status: Acute (2) Closed right hip fracture Current Visit: Yes Status: Acute (3) Hypoxia Current Visit: Yes Status: Acute Hospital Course: This is a 74-year-old female who presented on 07/21/2020 right after falling and sustaining injury to the [] hip. On exam and x-ray in the emergency department she was found to have a hip fracture. The pt is admitted to our service for surgical intervention and care. The patient is taken to surgery for hemiarthroplasty of the right hip. The procedure is performed without complication or sequelae. The patient is doing well postoperatively. Vital signs are stable on postop day #3. There are no new complaints or concerns. The patient is discharged to inpatient rehab pending medical clearance today. Please refer to the med rec for accurate list of medications. Patient Condition at Discharge: Serious Plan - Discharge Summary Discharge Rx Participant: No New Discharge Prescriptions: New Aspirin [Adult Low Dose Aspirin EC] 81 mg PO BID #1 tablet. HYDROcodone/APAP 5-325MG [[place] 5-325] 1 - 2 tab PO Q6HR PRN #42 tab PRN Reason: Pain Sennosides-Docusate Sodium [Senokot-S] 1 tab PO BID #60 tablet No Action Metoclopramide HCl [Reglan] 10 mg PO TID Valsartan/Hydrochlorothiazide [Valsartan-Hctz 160-12.5 mg Tab] 1 tab PO DAILY Atorvastatin [Lipitor] 20 mg PO HS hydrOXYzine pamoate [Vistaril] 25 - 50 mg PO Q6H PRN PRN Reason: Anxiety Omeprazole 20 mg PO DAILY rOPINIRole HCL [Requip] 1 mg PO HS rOPINIRole HCL [Requip] 0.25 mg PO DAILY Vitamin E 400 unit PO DAILY Cholecalciferol (Vitamin D3) [Vitamin D3] 125 mcg PO DAILY FLUoxetine HCL [PROzac] 40 mg PO DAILY Discharge Medication List Metoclopramide HCl [Reglan] 10 mg PO TID 07/08/17 [History] Valsartan/Hydrochlorothiazide [Valsartan-Hctz 160-12.5 mg Tab] 1 tab PO DAILY 07/08/17 [History] Atorvastatin [Lipitor] 20 mg PO HS 11/15/17 [History] Omeprazole 20 mg PO DAILY 11/15/17 [History] hydrOXYzine pamoate [Vistaril] 25 - 50 mg PO Q6H PRN 11/15/17 [History] Cholecalciferol (Vitamin D3) [Vitamin D3] 125 mcg PO DAILY 07/21/20 [History] FLUoxetine HCL [PROzac] 40 mg PO DAILY 07/21/20 [History] Vitamin E 400 unit PO DAILY 07/21/20 [History] rOPINIRole HCL [Requip] 0.25 mg PO DAILY 07/21/20 [History] rOPINIRole HCL [Requip] 1 mg PO HS 07/21/20 [History] Aspirin [Adult Low Dose Aspirin EC] 81 mg PO BID #1 tablet. 07/24/20 [Rx] HYDROcodone/APAP 5-325MG [[place] 5-325] 1 - 2 tab PO Q6HR PRN #42 tab 07/24/20 [Rx] Sennosides-Docusate Sodium [Senokot-S] 1 tab PO BID #60 tablet 07/24/20 [Rx] Follow up Appointment(s)/Referral(s): Alize Pulido PAC [PHYSICIAN RAILROAD COMMISSIONER] - 08/15/20 2:00 pm Julieta Vargas MD [Primary Care Provider] - 1-2 days [facility] [NON-STAFF] - As Needed (walker) [facility], [NON-STAFF] - As Needed Activity/Diet/Wound Care/Special Instructions: May bear weight as tolerated with walker. Leave Optifoam dressing intact 7-10 days. Maintain posterior hip precautions. Discharge Disposition: HOME WITH HOME HEALTH SERVICES
--- NOTE | 2020-07-25 15:57 | P.PN ---
Subjective Progress Note Date: 07/25/20 Principal diagnosis: Status post fall, hip fracture This is a very pleasant 74-year-old female patient who follows with Dr. Vargas as her primary care provider. She has a history of hypertension, hyperlipidemia, gastroesophageal reflux disease, anxiety. She also has a history of chronic and ongoing tobacco dependence and suspected chronic obstructive pulmonary disease. She denies any significant shortness of breath, cough or congestion. Typically she is able to do her day-to-day activities without any significant shortness of breath. She is not on any maintenance inha lers in the outpatient setting. She presented here to the emergency room after sustaining a fall at home and having significant right hip pain. She denied any loss of consciousness. Sustaining a trip and fall and not from dizziness or lightheadedness. CT angiogram ruled out pulmonary embolism. There is a large hiatal hernia. Mild pulmonary fibrotic changes. No suspicious pulmonary mass. Lung gordon are clear consolidation. She is seen today in consultation on the regular medical floor. She is currently resting in bed. Awake and alert in no acute distress. She is maintaining O2 saturations in the mid 90s on room air. She's afebrile. Hemodynamically stable. Plan is for repair of the right hip fracture possibly today. On 07/23/2020 patient seen in follow-up on medical surgical floor. She is sitting up in the recliner, in no acute distress, she is off the oxygen, room air pulse ox is 97%, she is working on incentive spirometer, I assisted 1500 mL today, lung sounds reveal coarse bibasilar crackles, patient has a congested cough, she needs encouragement to deep breathe and cough, she's been afebrile, hemodynamically she is slightly on the hypotensive side earlier was 89/50, with improvement through the day of her blood pressure and current reading of 102/58, denies any acute distress, no cough, no hemoptysis, no chest pain, chest CT showed no evidence of pulmonary embolism. Did show large hiatal hernia, mild pulmonary fibrotic changes, no suspicious pulmonary mass. No acute events overnight. On 07/24/2020 patient is seen in follow-up on medical surgical. She is calm and comfortable, she is on to half liters of oxygen, she is sitting up in the chair, her pulse ox is 97%, she denies worsening dyspnea, lung sounds reveal some bibasilar crackles, he still receiving 0.9 normal sitting at a rate of 75 ML per hour, her chest x-ray today was reviewed showing hiatal hernia and atelectasis, questionable airspace disease in the left upper lobe. Clinically stable, she is working physical therapy. Possible discharge home for tomorrow is being planned The patient is seen today 07/25/2020 in follow-up on the regular medical floor. She is awake and alert in no acute distress. Sitting up in a chair at the bedside. No worsening shortness of breath, cough or congestion. She is currently maintaining O2 saturation in the 90s on 2 L/m per nasal cannula. A febrile. Hemodynamically stable. White count 10.7. Hemoglobin 10.4. Sodium 134. Potassium 3.8. Creatinine 0.5. Objective - Vital Signs Vital signs: Vital Signs Temp 98.4 F 07/25/20 07:07 Pulse 52 L 07/25/20 07:57 Resp 17 07/25/20 07:57 BP 133/69 07/25/20 07:07 Pulse Ox 92 L 07/25/20 07:07 Intake & Output 07/24/20 07/25/20 07/25/20 18:59 06:59 18:59 Other: Voiding Method Bedside Commode Bedside Commode # Voids 2 2 - Exam GENERAL EXAM: Alert, pleasant, 74-year-old female patient, on 2 L/m per nasal cannula with pulse ox of 92% comfortable in no apparent distress. HEAD: Normocephalic/atraumatic. EYES: Normal reaction of pupils, equal size. Conjunctiva pink, sclera white. NOSE: Clear with pink turbinates. THROAT: No erythema or exudates. NECK: No masses, no JVD, no thyroid enlargement, no adenopathy. CHEST: No chest wall deformity. Symmetrical expansion. LUNGS: Equal air entry with coarse bibasilar crackles, but no wheezes CVS: Regular rate and rhythm, normal S1 and S2, no gallops, no murmurs, no rubs ABDOMEN: Soft, nontender. No hepatosplenomegaly, normal bowel sounds, no guarding or rigidity. EXTREMITIES: No clubbing, no edema, no cyanosis, 2+ pulses and upper and lower extremities. MUSCULOSKELETAL: Muscle strength and tone normal. Right hip incision is covered with surgical dressing, clean dry and intact, distal pulses intact SPINE: No scoliosis or deformity SKIN: No rashes CENTRAL NERVOUS SYSTEM: No focal deficits, tone is normal in all 4 extremities. PSYCHIATRIC: Alert and oriented -3. Appropriate affect. Intact judgment and insight. - Labs CBC & Chem 7: 07/25/20 05:34 07/25/20 05:34 Labs: Abnormal Lab Results - Last 24 Hours (Table) 07/25/20 07/25/20 Range/Units 05:34 05:34 WBC 10.7 H (3.8-10.6) k/uL RBC 3.17 L (3.80-5.40) m/uL Hgb 10.4 L (11.4-16.0) gm/dL Hct 30.9 L (34.0-46.0) % Neutrophils # 8.6 H (1.3-7.7) k/uL Sodium 134 L (135-145) mmol/L Anion Gap 3.70 L (4.00-12.00) mmol/L Creatinine 0.5 L (0.6-1.5) mg/dL BUN/Creatinine Ratio 28.00 H (12.00-20.00) Ratio AST 49 H (13-35) U/L Total Protein 4.9 L (6.2-8.2) g/dL Albumin 2.60 L (3.80-4.90) g/dL Albumin/Globulin Ratio 1.13 L (1.60-3.17) g/dL Assessment and Plan Assessment: 1 Status post trip and fall with right hip fracture, denied loss of con sciousness 2 Chronic tobacco dependence was some suspected underlying COPD 3 History of anxiety 4 Hyperlipidemia 5 Hypertension Plan: The patient was seen and evaluated by Dr. Quezada Encouraged regarding the continued use of the incentive spirometer Educated regarding the importance of complete smoking cessation Bronchodilators as needed Home once cleared by surgery I, the cosigning physician, performed a history & physical examination of the patient. Lungs sounds with coarse crackles in the bases. Maintaining good O2 saturations in the 90s on 2 L/m per nasal cannula. I discussed the assessment and plan of care with my nurse practitioner, Gretchen Llamas. I attest to the above note as dictated by her.
--- NOTE | 2020-07-25 18:35 | P.PN ---
Subjective Progress Note Date: 07/25/20 Shira Nash, is a 74-year-old female who presented to [facility] emergency room with a chief complaint of fall and right hip pain, patient stated that she tripped and fell and landed on her right hip about an hour and a half prior to presentation she was complaining of pain in the right hip radiating to the back and to the right lower extremity she also had mild trauma to her head, she denies any loss of consciousness no headache no change in her vision. Patient was evaluated in the emergency room, her vital exam on presentation revealed a temperature of 98.4 pulse 80 respiration 18 blood pressure 188/82 pulse ox 93% on room air however subsequently her pulse ox dropped she was put on a nonrebreather mask, her white blood count on presentation was 19.1 hemoglobin 14.1 platelet count 298 INR 1.0 sodium 126 potassium 4.0 chloride 98 glucose 140 AST was elevated at 180 one a LT elevated at 184 alkaline phosphatase normal at 98 urine analysis was normal without any evidence of infection rob virus PCR was negative, chest x-ray done in the emergency room revealed evidence of hiatal hernia without any active cardiopulmonary disease. Due to hypoxia patient underwent CT angiogram of the chest it was negative for pulmonary embolism and revealed mild pulmonary fibrotic changes no suspicious pulmonary mass. EKG was done in the emergency room and revealed normal sinus rhythm with evidence of possible old septal infarct no ST or T-wave changes. Patient was admitted to medical floor under orthopedic surgery, medical consultation was requested for surgical clearance. Patient was seen and examined on the medical floor on 07/22/2020, she is alert and oriented 3 in no apparent distress she is complaining of right hip pain otherwise she denies any complaints there is no fever or chills no headache or dizziness no chest pain no shortness of breath no cough no nausea or vomiting no abdominal pain no diarrhea no blood in the stools no burning with urination no frequency or urgency and no hematuria no change in her vision or her speech no numbness or weakness in any of her extremities. Patient interviewed in details she has a known history of hypertension, hyperlip idemia, gastroesophageal reflux disease, history of anxiety, and history of tremor with possible Parkinson disease. She denies any history of coronary artery disease no history of chest pain or angina or myocardial infarction in the past, no history of congestive heart failure. She denies any history of lung disease no history of COPD or emphysema no history of asthma however patient is a lifelong smoker she smokes 1 pack per day she has been smoking since age 20. On 07/23/2020 patient was seen and examined on the medical floor she is alert and oriented in no distress he denies any complaints at this time there is no fever or chills no headache or dizziness no chest pain no shortness of breath no cough no nausea or vomiting no abdominal pain no diarrhea no blood in the stools no burning with urination no frequency or urgency and no hematuria, On 07/24/2020 patient was seen and examined on the medical floor she is alert and oriented 3 in no apparent distress she is complaining of pain in her hip otherwise she denies any complaints there is no fever or chills no headache or dizziness no chest pain no shortness of breath no cough no nausea or vomiting no abdominal pain no diarrhea and no urinary symptoms On 07/25/2020 patient was seen and examined on the medical floor she is alert and oriented 3 in no distress there is no fever or chills no headache or dizziness no chest pain no shortness of breath no cough no nausea or vomiting no abdominal pain no diarrhea and no urinary symptoms patient was cleared by orthopedic surgery for discharge however maintained on oxygen throughout this admission once oxygen was held for pulse ox dropped down to the 18th discharge order were held and chest x-ray was ordered if chest x-ray is normal possible discharge to home tomorrow will arrange for home oxygen. Objective - Vital Signs Vital signs: Vital Signs Temp 98.0 F 07/25/20 16:47 Pulse 98 07/25/20 16:47 Resp 18 07/25/20 16:47 BP 149/80 07/25/20 16:47 Pulse Ox 92 L 07/25/20 16:47 Intake & Output 07/24/20 07/25/20 07/25/20 18:59 06:59 18:59 Other: Voiding Method Bedside Commode Bedside Commode # Voids 2 2 - Exam In general patient is alert and oriented 3 in no apparent distress HEENT head normocephalic and atraumatic Neck is supple no JVD no goiter no lymphadenopathy Chest exam reveals a few scattered rhonchi no wheezing Cardiac exam reveals regular heart sounds S1 and S2 no gallops no murmurs nor rubs Abdomen is soft nontender no organomegaly with normal bowel sounds Extremity exam reveals no edema no cyanosis or clubbing peripheral pulses are palpable in both dorsalis pedis Neurological examination reveals no gross focal deficit - Labs CBC & Chem 7: 07/25/20 05:34 07/25/20 05:34 Labs: Abnormal Lab Results - Last 24 Hours (Table) 07/25/20 07/25/20 Range/Units 05:34 05:34 WBC 10.7 H (3.8-10.6) k/uL RBC 3.17 L (3.80-5.40) m/uL Hgb 10.4 L (11.4-16.0) gm/dL Hct 30.9 L (34.0-46.0) % Neutrophils # 8.6 H (1.3-7.7) k/uL Sodium 134 L (135-145) mmol/L Anion Gap 3.70 L (4.00-12.00) mmol/L Creatinine 0.5 L (0.6-1.5) mg/dL BUN/Creatinine Ratio 28.00 H (12.00-20.00) Ratio AST 49 H (13-35) U/L Total Protein 4.9 L (6.2-8.2) g/dL Albumin 2.60 L (3.80-4.90) g/dL Albumin/Globulin Ratio 1.13 L (1.60-3.17) g/dL Assessment and Plan Plan: 1. Fall with right hip fracture patient is scheduled for surgery today. Patient is at higher risk due to her age, her prolonged history of smoking, mild hypoxia on presentation, however there is no medical contraindication for surgery, no abnormality seen on EKG, chest x-ray, and CT angiogram of the chest, no evidence of any infectious process on chest x-ray, urine analysis, no skin ulceration or infection. Pulmonary consultation is requested for evaluation and management of COPD with hypoxia 2. Elevated liver enzyme cause is unclear at this time will discontinue Lipitor, if liver enzymes are not improving will check liver ultrasound, and rule out viral hepatitis. 3. Underlying history of hypertension 4. Underlying history of Parkinson disease maintained on Requip 5. Underlying history of depression with anxiety disorder 6. Underlying history of hyperlipidemia at this point will hold Lipitor due to elevated liver enzymes 7. Underlying history of gastroesophageal reflux disease with evidence of hiatal hernia continue At this time patient will have surgery today, she is at higher risk however no contraindication for surgery Will follow closely post surgery Pulmonary consultation requested in regard to COPD hypoxia and prolonged history of smoking
--- NOTE | 2020-07-25 19:23 | XR ---
EXAMINATION TYPE: XR chest 1V portable DATE OF EXAM: 07/25/2020 COMPARISON: Yesterday HISTORY: Short of breath. TECHNIQUE: FINDINGS: There is coarse interstitial infiltrate throughout both lungs. There is slight blunting rig ht costophrenic angle. Heart size is normal. There is hiatal hernia. IMPRESSION: Interstitial pneumonia unchanged or slightly worse than yesterday. Small right pleural ef fusion or pleural reaction unchanged.
[2020-07-25] MEDS: SENNOSIDES-DOCUSATE SODIUM 1 EACH TAB PO SCH (20:12)
[2020-07-26] MEDS: HYDROcodone/APAP 5-325MG 1 EACH TAB PO PRN ×2 (04:12→17:31)
[2020-07-26] MEDS: CHOLECALCIFEROL 1,000 UNIT TAB PO SCH (07:45)
[2020-07-26] MEDS: FLUoxetine HCL 20 MG CAP PO SCH (07:45)
[2020-07-26] MEDS: hydroCHLOROthiazide 12.5 MG CAP PO SCH (07:45)
[2020-07-26] MEDS: ASPIRIN 81 MG PO SCH (07:45)
[2020-07-26] MEDS: PANTOPRAZOLE 40 MG TABLET PO SCH (07:45)
[2020-07-26] MEDS: VITAMIN E (DL,TOCOPHERYL ACET) 400 UNIT CAP PO SCH (07:46)
[2020-07-26] MEDS: VALSARTAN 160 MG TAB PO SCH (07:46)
[2020-07-26] MEDS: METOCLOPRAMIDE 10 MG TAB PO SCH (07:46)
[2020-07-26] MEDS: IPRATROPIUM-ALBUTEROL 3 ML NEB INHALATION SCH ×2 (07:52→12:19)
[2020-07-26 07:55] VITALS: RESP 17
[2020-07-26 14:52] VITALS: BP 111/65; PULSE 94; TEMP 98.2
--- NOTE | 2020-07-26 16:26 | PN ---
PROGRESS NOTE This is a 74-year-old female who was admitted back on July 21 to the hospital. She apparently fell and when she did, she fractured her right hip. There was no loss of consciousness. The patient is doing much better. She has a history of chronic tobacco dependence and underlying COPD, anxiety, hyperlipidemia, and hypertension. The patient does not have any complaints. She is not short of breath. No chest pain or chest discomfort. No nausea, vomiting or diarrhea. PHYSICAL EXAMINATION: Current vital signs include a temperature 98.2, heart rate 94, respiratory rate 17, blood pressure 111/65 mean 82. saturation 96%. Appears in no acute distress. HEENT: Examination is grossly unremarkable. Nasal O2 noted at 2 L. NECK: Supple full range of motion. No adenopathy. Neck veins are flat. CARDIOVASCULAR: Examination reveals regular rhythm rate. S1, S2 normal. No S3, S4, or murmur. LUNGS: Reveal clear breath sounds to be equal bilaterally. A few coarse bibasilar crackles are appreciated. No rhonchi or wheezes. ABDOMEN: Soft bowel sounds are heard. EXTREMITIES are intact. No cyanosis, clubbing, or edema. SKIN: Without rash. NEUROLOGIC: Examination is unremarkable. There is a dressing over the right hip incision. ASSESSMENT: 1. Status post status post fall, with right hip fracture. 2. Postoperative day. 3. Status post right hip cemented unipolar hemiarthroplasty. 4. Underlying COPD from chronic and ongoing tobacco use. 5. History of anxiety. 6. Hyperlipidemia. 7. History of hypertension. PLAN: The patient should continue using the incentive spirometer every hour. We encourage deep breathing, coughing, clearing of secretions. The patient should also continue using her bronchodilators as required. The patient from our perspective could be discharged home. She needs to be cleared by Surgery and Internal Medicine. No additional recommendations are made. Prognosis is guarded. MMODL / IJN: [id number] /
== END 2020-07-26 18:17 | DRG 521 ==
LOC: EC 18:54 → 4SSUR 22:41
PROVIDERS: ADMIT Orthopaedic Surgery; ATTEND Orthopaedic Surgery
PROC: 0SRR0J9 Replacement of Right Hip Joint, Femoral Surface with Synthetic Substitute, Cemented, Open Approach (ICD-10-PCS; principal; 2020-07-22 10:30)
DX: S72.011A Unspecified intracapsular fracture of right femur, initial encounter for closed fracture (principal); J96.01 Acute respiratory failure with hypoxia; J44.9 Chronic obstructive pulmonary disease, unspecified; G20 Parkinson's disease; R74.01 Elevation of levels of liver transaminase levels; D72.829 Elevated white blood cell count, unspecified; W01.0XXA Fall on same level from slipping, tripping and stumbling without subsequent striking against object, initial encounter; Y92.009 Unspecified place in unspecified non-institutional (private) residence as the place of occurrence of the external cause; Z20.828 Contact with and (suspected) exposure to other viral communicable diseases; K44.9 Diaphragmatic hernia without obstruction or gangrene; R74.8 Abnormal levels of other serum enzymes; E78.5 Hyperlipidemia, unspecified; I10 Essential (primary) hypertension; K21.9 Gastro-esophageal reflux disease without esophagitis; H40.9 Unspecified glaucoma; F32.9 Major depressive disorder, single episode, unspecified; F41.9 Anxiety disorder, unspecified; F17.210 Nicotine dependence, cigarettes, uncomplicated; Z90.710 Acquired absence of both cervix and uterus; Z79.899 Other long term (current) drug therapy; Z79.82 Long term (current) use of aspirin
CPT/HCPCS: 36415; 71045; 71275; 73501; 73502; 80053; 81003; 85025; 85610; 85730; 86850; 86900; 86901; 87635; 88300; 93005; 94640; 96374; 96375; 99285

== ENCOUNTER → 2020-09-04 | Outpatient (CLI) | payer MEDICARE ==
[2020-09-04 15:31] LABS: Basophils % (A) 1 %; Eosinophils # (A) 0.2 k/uL (0-0.7); Eosinophils % (A) 3 %; HGB 13.1 gm/dL (11.4-16.0); Lymphocytes # (A) 2.4 k/uL (1.0-4.8); Lymphocytes % (A) 31 %; MCH 32.1 pg (25.0-35.0); MCHC 32.7 g/dL (31.0-37.0); MCV 98.2 fL (80.0-100.0); Mean Platelet Volume 7.2; Monocytes # (A) 0.4 k/uL (0-1.0); Monocytes % (A) 6 %; Neutrophils # (A) 4.3 k/uL (1.3-7.7); Neutrophils % (A) 57 %; Platelet Count 362 k/uL (150-450); RBC 4.08 m/uL (3.80-5.40); RDW 12.9 % (11.5-15.5); WBC 7.5 k/uL (3.8-10.6)
[2020-09-04 23:18] LABS: African American GFR (CKD) 85.4 (60.0-200.0); Albumin 3.6 g/dL (3.80-4.90); Albumin/Globulin Ratio 1.2 (1.60-3.17); Anion Gap 9.4 mmol/L (4.00-12.00); BUN/Creat Ratio 12.5 Ratio (12.00-20.00); Calcium 9.4 mg/dL (8.7-10.3); Carbon Dioxide 26.6 mmol/L (21.6-31.8); Non-African American GFR(CKD) 73.7 (60.0-200.0); Potassium 3.6 mmol/L (3.5-5.5); Total Bilirubin 0.3 mg/dL (0.3-1.2); Total Protein 6.6 g/dL (6.2-8.2)
== END | disposition home or self-care (01) ==
LOC: LABWHC1 15:02
PROVIDERS: ATTEND Thoracic Surgery (Cardiothoracic Vascular Surgery)
DX: L89.612 Pressure ulcer of right heel, stage 2 (principal)
CPT/HCPCS: 36415; 80053; 84134; 85025

== ENCOUNTER 2022-07-04 10:41 | Emergency (ER) | payer MEDICARE ==
[2022-07-04 10:48] VITALS: RESP 18; TEMP 97.7
[2022-07-04] MEDS ORDERED: SODIUM CHLORIDE 0.9% 500 ML 500 ML IV STA (11:20)
[2022-07-04] MEDS ORDERED: KETOROLAC 15 MG/ML 1 ML VIAL IM STA (11:20)
--- NOTE | 2022-07-04 11:24 | ED ---
Back Pain HPI - General Chief Complaint: Back Pain/Injury Stated Complaint: back pain Time Seen by Provider: 07/04/22 11:12 Source: patient, EMS, RN notes reviewed, old records reviewed Limitations: no limitations - History of Present Illness Initial Comments: Well-appearing 76-year-old female presents to the emergency room with complaints of 5 days of left lower back pain. Patient states that she woke up with this pain. Denies any injury. Has not had this type of pain before. Denies any fevers, nausea vomiting or diarrhea. Patient's last bowel movement was 2 days ago states that she normally goes every day. Does have history of hypertension and Parkinson's. MD Complaint: back pain -: days(s) (5) Similar Symptoms Previously: No Place: home Radiation: none Severity scale (1-10): 2 Quality: aching Consistency: constant Improves With: immobilization Worsens With: movement (bending or twisting) Context: other (woke up with pain) Associated Symptoms: denies other symptoms - Related Data Previous Rx's Medication Instructions Recorded Cephalexin [Keflex] 500 mg PO BID 5 Days #10 cap 07/04/22 Allergies Allergy/AdvReac Type Severity Reaction Status Date / Time No Known Allergies Allergy Verified 07/04/22 10:48 Review of Systems ROS Statement: Those systems with pertinent positive or pertinent negative responses have been documented in the HPI. ROS Other: All systems not noted in ROS Statement are negative. Past Medical History Past Medical History: Hypertension Additional Past Medical History / Comment(s): Parkinsons History of Any Multi-Drug Resistant Organisms: None Reported Past Surgical History: No Surgical Hx Reported, Orthopedic Surgery Past Psychological History: No Psychological Hx Reported, Anxiety Smoking Status: Current every day smoker Past Alcohol Use History: None Reported Past Drug Use History: None Reported General Exam Limitations: no limitations General appearance: alert, in no apparent distress Head exam: Present: atraumatic, normocephalic, normal inspection Eye exam: Absent: scleral icterus, conjunctival injection, periorbital swelling ENT exam: Present: mucous membranes moist Expanded Mouth exam: Present: tongue normal, tongue elevation. Absent: drooling, trismus, muffled voice Neck exam: Absent: tenderness, meningismus Respiratory exam: Absent: respiratory distress, accessory muscle use Cardiovascular Exam: Present: regular rate GI/Abdominal exam: Present: soft, tenderness (Left lower quadrant). Absent: rigid Extremities exam: Present: normal capillary refill. Absent: tenderness, pedal edema, calf tenderness Back exam: Present: normal inspection. Absent: tenderness, CVA tenderness (R), CVA tenderness (L), muscle spasm, paraspinal tenderness, vertebral tenderness, rash noted Neurological exam: Present: alert, oriented X3 Psychiatric exam: Present: normal affect, normal mood Skin exam: Present: warm, dry, normal color. Absent: cyanosis, diaphoretic, erythema, petechiae, pallor Course Vital Signs 07/04/22 07/04/22 10:43 14:30 Temperature 97.7 F Pulse Rate 64 69 Respiratory 18 18 Rate Blood Pressure 142/69 133/88 O2 Sat by Pulse 97 97 Oximetry Medical Decision Making - Medical Decision Making Patient presents with low back pain for 5 days. States that she woke up with the pain. Denies any injury. Denies any fevers. No dysuria. On physical exam patient has left lower quadrant pain. CT abdomen and pelvis performed to rule out diverticulitis. CT reviewed by me shows a large amount of stool in the colon. The radiologist impression large hiatal hernia, stomach into the lower thoracic cavity. Gastroesophageal junction is above the diaphragm. Patient has no upper abdominal pain, no nausea vomiting. No chest pain or difficulty breathing. Labs show a sodium of 129. Patient was given IV fluids. No evidence of leukocytosis. She was given an enema with pain relief and was ready for discharge home. Urinalysis shows cloudy urine with large leukocyte esterase 93 white blood cells and occasional bacteria. Negative nitrites. Due to the patient's back pain and left lower quadrant pain she will be treated for urinary tract infection. Urine was sent for culture. I did contact her after discharge to advise her of the urine results and directed her to take the Keflex as prescribed. She is agreeable to this plan of care Dr Jessica. - Lab Data Result diagrams: 07/04/22:07/04/22: Lab Results 07/04/22 07/04/22 07/04/22 Range/Units :15 07:15 07: WBC 7.6 (3.8-10.6) k/uL RBC 4.56 (3.80-5.40) m/uL Hgb 15.0 (11.4-16.0) gm/dL Hct 43.1 (34.0-46.0) % MCV 94.5 (80.0-100.0) fL MCH 32.9 (25.0-35.0) pg MCHC 34.8 (31.0-37.0) g/dL RDW 12.1 (11.5-15.5) % Plt Count 370 (150-450) k/uL MPV 8.1 Neutrophils % 61 % Lymphocytes % 26 % Monocytes % 6 % Eosinophils % 3 % Basophils % 1 % Neutrophils # 4.6 (1.3-7.7) k/uL Lymphocytes # 2.0 (1.0-4.8) k/uL Monocytes # 0.5 (0-1.0) k/uL Eosinophils # 0.3 (0-0.7) k/uL Basophils # 0.0 (0-0.2) k/uL Sodium 129 L (137-145) mmol/L Potassium 3.8 (3.5-5.1) mmol/L Chloride 93 L (98-107) mmol/L Carbon Dioxide 29 (22-30) mmol/L Anion Gap 7 mmol/L BUN 6 L (7-17) mg/dL Creatinine 0.78 (0.52-1.04) mg/dL Est GFR (CKD-EPI)AfAm 87 (>60 ml/min/1.73 sqM) Est GFR (CKD-EPI)NonAf 75 (>60 ml/min/1.73 sqM) Glucose 115 H (74-99) mg/dL Plasma Lactic Acid Jorge A (0.7-2.0) mmol/L Calcium 10.0 (8.4-10.2) mg/dL Total Bilirubin 0.6 (0.2-1.3) mg/dL AST 35 (14-36) U/L ALT 24 (4-34) U/L Alkaline Phosphatase 124 (38-126) U/L Total Protein 8.1 (6.3-8.2) g/dL Albumin 4.3 (3.5-5.0) g/dL Urine Color Light Yellow Urine Appearance Cloudy H (Clear) Urine pH 7.0 (5.0-8.0) Ur Specific [place] 1.026 (1.001-1.035) Urine Protein Negative (Negative) Urine Glucose (UA) Negative (Negative) Urine Ketones Negative (Negative) Urine Blood Negative (Negative) Urine Nitrite Negative (Negative) Urine Bilirubin Negative (Negative) Urine Urobilinogen <2.0 (<2.0) mg/dL Ur Leukocyte Esterase Large H (Negative) Urine RBC 2 (0-5) /hpf Urine WBC 93 H (0-5) /hpf Urine WBC Clumps Occasional H (None) /hpf Ur Squamous Epith Cells 10 H (0-4) /hpf Urine Bacteria Occasional H (None) /hpf Hyaline Casts 1 (0-2) /lpf Urine Mucus Rare H (None) /hpf 07/04/22 Range/Units 11:22 WBC (3.8-10.6) k/uL RBC (3.80-5.40) m/uL Hgb (11.4-16.0) gm/dL Hct (34.0-46.0) % MCV (80.0-100.0) fL MCH (25.0-35.0) pg MCHC (31.0-37.0) g/dL RDW (11.5-15.5) % Plt Count (150-450) k/uL MPV Neutrophils % % Lymphocytes % % Monocytes % % Eosinophils % % Basophils % % Neutrophils # (1.3-7.7) k/uL Lymphocytes # (1.0-4.8) k/uL Monocytes # (0-1.0) k/uL Eosinophils # (0-0.7) k/uL Basophils # (0-0.2) k/uL Sodium (137-145) mmol/L Potassium (3.5-5.1) mmol/L Chloride (98-107) mmol/L Carbon Dioxide (22-30) mmol/L Anion Gap mmol/L BUN (7-17) mg/dL Creatinine (0.52-1.04) mg/dL Est GFR (CKD-EPI)AfAm (>60 ml/min/1.73 sqM) Est GFR (CKD-EPI)NonAf (>60 ml/min/1.73 sqM) Glucose (74-99) mg/dL Plasma Lactic Acid Jorge A 0.9 (0.7-2.0) mmol/L Calcium (8.4-10.2) mg/dL Total Bilirubin (0.2-1.3) mg/dL AST (14-36) U/L ALT (4-34) U/L Alkaline Phosphatase (38-126) U/L Total Protein (6.3-8.2) g/dL Albumin (3.5-5.0) g/dL Urine Color Urine Appearance (Clear) Urine pH (5.0-8.0) Ur Specific [place] (1.001-1.035) Urine Protein (Negative) Urine Glucose (UA) (Negative) Urine Ketones (Negative) Urine Blood (Negative) Urine Nitrite (Negative) Urine Bilirubin (Negative) Urine Urobilinogen (<2.0) mg/dL Ur Leukocyte Esterase (Negative) Urine RBC (0-5) /hpf Urine WBC (0-5) /hpf Urine WBC Clumps (None) /hpf Ur Squamous Epith Cells (0-4) /hpf Urine Bacteria (None) /hpf Hyaline Casts (0-2) /lpf Urine Mucus (None) /hpf Disposition Clinical Impression: Back pain, UTI (urinary tract infection) Disposition: HOME SELF-CARE Condition: Good Instructions (If sedation given, give patient instructions): Acute Low Back Pain (ED), Urinary Tract Infection in Older Adults (ED) Additional Instructions: Follow-up with your primary care doctor next week. Return to the emergency room if any new or concerning symptoms. Tylenol as needed for any pain. Increase your fluid intake. Prescriptions: Cephalexin [Keflex] 500 mg PO BID 5 Days #10 cap Is patient prescribed a controlled substance at d/c from ED?: No Referrals: Julieta Vargas MD [Primary Care Provider] - 1-2 days Time of Disposition: 14:19
[2022-07-04 11:40] LABS: Basophils % (A) 1 %; Eosinophils # (A) 0.3 k/uL (0-0.7); Eosinophils % (A) 3 %; HCT 43.1 % (34.0-46.0); Lymphocytes % (A) 26 %; MCH 32.9 pg (25.0-35.0); MCHC 34.8 g/dL (31.0-37.0); MCV 94.5 fL (80.0-100.0); Mean Platelet Volume 8.1; Monocytes # (A) 0.5 k/uL (0-1.0); Monocytes % (A) 6 %; Neutrophils # (A) 4.6 k/uL (1.3-7.7); Neutrophils % (A) 61 %; Platelet Count 370 k/uL (150-450); RBC 4.56 m/uL (3.80-5.40); RDW 12.1 % (11.5-15.5); WBC 7.6 k/uL (3.8-10.6)
[2022-07-04 11:55] LABS: Albumin 4.3 g/dL (3.5-5.0); Potassium 3.8 mmol/L (3.5-5.1); Total Bilirubin 0.6 mg/dL (0.2-1.3); Total Protein 8.1 g/dL (6.3-8.2)
--- NOTE | 2022-07-04 12:51 | CT ---
EXAMINATION TYPE: CT abdomen pelvis w con DATE OF EXAM: 07/04/2022 COMPARISON: None INDICATION: back pain DLP: 659 mGycm, Automated exposure control for dose reduction was used. CONTRAST: 100 mL of Isovue 300. Study performed without Oral Contrast TECHNIQUE: Axial images were obtained from above the diaphragm to the pubic rami in the axial plane a t 5 mm thick sections. Reconstructed images are reviewed on the computer in the coronal plane. FINDINGS: Limited CT sections are obtained the lung bases. The lung bases are clear. There is a moderate-size d hernia. Gastroesophageal junction is above the diaphragmatic hiatus. CT ABDOMEN: Liver: Normal Spleen: Normal Pancreas: Normal Adrenal glands: The adrenal glands are normal. Gallbladder: Normal Kidneys: No masses are evident. No hydronephrosis is present. No cysts are present. Delayed images were obtained through the kidneys, which remain unremarkable. Aorta: Vascular calcification is within the aorta. Inferior vena cava: Normal. CT PELVIS: Some limitation in the lower pelvis due to beam hardening artifact from right hip prosthes is Loops of bowel within the abdomen and pelvis are normal. Focal apical bolus at the rectum. There a re loops of bowel which are incompletely distended or lack oral contrast limiting their evaluation. Appendix: Normal as visualized. No dilated tubular structure or inflammatory changes evident Urinary bladder: Normal. Genitourinary structures: Uterus and ovaries are not identified. Osseous structures: No suspicious lytic or sclerotic lesions. Right hip prosthesis is present. Facet hypertrophy in the lower lumbar spine is present. There is loss of disc height throughout the lumbar spine including L2-3 and L5-S1 and greatest levels. Mild endplate changes may have mild anterior the jhonny sac compression without AP spinal canal stenosis. IMPRESSIONS: 1. Large hernia of the stomach into the lower thoracic cavity. Gastroesophageal junction is above th e diaphragm 2. No acute abdomen or pelvic abnormality. 3. Degenerative disc changes within the lumbar spine.
[2022-07-04] MEDS ORDERED: NA PHOS,M-B/NA PHOS,DI-BA 133 ML ENEMA RECTAL STA (13:28)
[2022-07-04 14:32] VITALS: BP 133/88; PULSE 69
[2022-07-04 14:39] LABS: Appearance,Urine Cloudy (Clear); Bacteria,Urine Occasional /hpf; Bilirubin,Urine Negative (Negative); Blood,Urine Negative (Negative); Color,Urine Light Yellow; Glucose,Urine (UA) Negative (Negative); Hyaline Casts,Urine 1 /lpf (0-2); Ketones,Urine Negative (Negative); Leukocyte Esterase,Urine Large (Negative); Mucus,Urine Rare /hpf; Nitrite,Urine Negative (Negative); Protein,Urine Negative (Negative); RBC,Urine 2 /hpf (0-5); Specific Gravity,Urine 1.026 (1.001-1.035); Squamous Epithelial Cell,Urine 10 /hpf (0-4); Urobilinogen,Urine <2.0 mg/dL (<2.0); WBC,Urine 93 /hpf (0-5)
== END 2022-07-04 14:32 | disposition home or self-care (01) ==
LOC: MERGE 10:41 → UNMERGE 10:41 → EC 10:41
DX: N39.0 Urinary tract infection, site not specified (principal); I10 Essential (primary) hypertension; F17.200 Nicotine dependence, unspecified, uncomplicated; Z79.899 Other long term (current) drug therapy
CPT/HCPCS: 36415; 80053; 83605; 85025; 81001; 87086; 74177; 99284; 96360; Q9967